=== PATIENT | male | born 1955 | race Caucasian/White ===

== ENCOUNTER 2016-09-20 15:11 | Inpatient (IN) ==
[2016-09-20 16:48] LABS: Basophils % 0.3 %; Eosinophils # 0.1 K/mcL (0.0-0.6); Eosinophils % 0.3 %; Hematocrit 40.8 % (37.5-50.1); Hemoglobin 13.9 g/dL (12.9-16.9); Lymphocytes # 1.4 K/mcL (0.6-4.6); Lymphocytes % 9.2 %; Mean Corpuscular HGB Conc 34.1 g/dL (31.6-35.5); Mean Corpuscular Hemoglobin 31.4 pg (28.0-33.3); Mean Corpuscular Volume 92.3 fL (83.0-100.0); Mean Platelet Volume 9.3 fL (9.4-12.4); Monocytes # 1.6 K/mcL (0.0-1.3); Monocytes % 10.9 %; Neutrophils # 11.4 K/mcL (1.6-8.9); Platelet Count 236 K/mcL (140-400); Red Blood Count 4.42 M/mcL (4.19-5.50); Red Cell Distribution Width 13.6 % (11.5-14.5); Segmented Neutrophils % 78.3 %
[2016-09-20 17:07] LABS: Alanine Aminotransferase 21 Units/L (0-55); Albumin 3.3 g/dL (3.5-5.0); Albumin/Globulin Ratio 0.6 (1.1-2.2); Alkaline Phosphatase 77 Units/L (38-126); Amylase 31 Units/L (25-125); Aspartate Amino Transferase 26 Units/L (5-34); BUN/Creatinine Ratio 17 (6-26); Bilirubin,Total 0.6 mg/dL (0.2-1.2); Blood Urea Nitrogen 28 mg/dL (8-26); Calcium 10.6 mg/dL (8.6-10.8); Carbon Dioxide 25 mEq/L (19-29); Chloride 95 mEq/L (98-109); Globulin 5.1 g/dL (2.4-3.5); Glucose 102 mg/dL (70-99); Lipase < 10 Units/L (8-78); Osmolality,Calculated 276 (280-300); Potassium 4.2 mEq/L (3.5-4.5); Sodium 130 mEq/L (136-145); Total Protein 8.4 g/dL (6.0-8.3); eGFR For African Americans 52 (> 60); eGFR For Non-African Americans 43 (> 60)
[2016-09-20 17:47] LABS: Bilirubin,Urine Small (Negative); Blood,Urine Small (Negative); Clarity,Urine Turbid (Clear); Color,Urine Dark Yellow (Yellow); Glucose,Urine (UA) Normal (Normal); Ketones,Urine Trace mg/dL (Negative); Leukocyte Esterase,Urine Large (Negative); Nitrite,Urine Positive (Negative); PH,Urine 5.5 pH Units (5.0-8.0); Protein,Urine 100 mg/dL (Neg-Trace); Specific Gravity,Urine 1.024 (1.010-1.025); Urobilinogen,Urine Normal (Normal)
[2016-09-20 17:50] LABS: Bacteria,Urine Many per hpf (None-Few); RBC,Urine 15-30 per hpf (0-3); Squamous Epithelial Cell,Urine Many per lpf (None-Few); WBC,Urine 50-100 per hpf (0-3)
[2016-09-20 18:01] LABS: Hyaline Casts,Urine Moderate per lpf (None-Few)
[2016-09-20] MEDS ORDERED: Levofloxacin 750 MG/150 ML 750 MG/150 ML BAG IVPB ONE (18:05)
[2016-09-20] MEDS ORDERED: Piperacillin/Tazobactam 3.375 GM in D5% in Water (Mini-Bag+) 100 ML IVPB ONE (18:11)
--- NOTE | 2016-09-20 18:13 | Emergency Department Note ---
Disposition Clinical Impression: Severe sepsis, BELEM (acute kidney injury), Renal cyst UTI (urinary tract infection) Qualifiers: Urinary tract infection type: acute cystitis Hematuria presence: without hematuria Qualified Code(s): N30.00 - Acute cystitis without hematuria Disposition: Admitted As Inpatient Condition: Fair Referrals: NO,PCP [Primary Care Provider] - Forms: Work/School Release, ED Satisfaction Letter General Adult HPI - General Chief complaint: ED Abdominal Pain Stated complaint: NO BM x4-5 days Time Seen by Provider: 09/20/16 17:48 Source: patient Mode of arrival: private vehicle Limitations: no limitations Nursing Notes Reviewed: Yes Vital Signs Reviewed: Yes - History of Present Illness HPI Narrative: 61-year-old male who reports 4 days of no bowel movement, decreased urine output (with incontinence), chills, fatigue. He says in general he does not not feel well. He has a past medical history of bladder cancer for which she is followed Dr. Cheatham. To his knowledge he is currently cancer free. He is not currently on any radiation or chemotherapy. He notes that he is up all night urinating. He has also had decrease in his by mouth intake. He has been taking Aleve due to a headache and is been taking 800 mg at a time. His only other medical problem is her hypertension and hyperlipidemia for which she takes lisinopril-HCTZ, gemfibrozil. He denies any pain in his belly. His headache has been bifrontal has been going on for approximately 2 days. No photophobia. No neck stiffness Pain Scale: 0 Consistency: constant Improves with: nothing Worsens with: nothing Associated symptoms: Reports: denies other symptoms - Related Data Home Medications Medication Instructions Recorded Confirmed Gemfibrozil [Lopid] 600 mg PO DAILY 07/24/15 05/05/16 Cyanocobalamin (Vitamin B-12) 2,500 mcg PO DAILY 09/20/16 09/20/16 [Vitamin B12] Lisinopril/Hydrochlorothiazide 1 each PO DAILY 09/20/16 09/20/16 [Zestoretic 20-25 mg Tablet] Multivit-Min/FA/Lycopen/Lutein 1 each PO DAILY 09/20/16 09/20/16 [Centrum Silver Tablet] Allergies Allergy/AdvReac Type Severity Reaction Status Date / Time No Known Allergies Allergy Verified 09/20/16 15:50 All systems ED: reviewed and negative except as stated. Constitutional: Reports: chills Eyes: Denies: vision change ENT ED: Denies: throat pain Cardiovascular: Denies: chest pain Respiratory: Denies: cough Gastrointestinal: Reports: constipation. Denies: abdominal pain, nausea, vomiting, diarrhea Genitourinary: Denies: dysuria Musculoskeletal: Denies: back pain Integumentary: Denies: rash Neurological: Reports: headache Past Medical History - Past Medical History Medical history: Reports: cancer, hyperlipidemia, hypertension, other Psychiatric history: Reports: no psych history - Social History Smoking Status: Current every day smoker Smokeless Tobacco Status: No Alcohol use: Reports: none Drug use: Reports: marijuana Physical Exam - General Limitations: no limitations General appearance: alert - Head Head exam: atraumatic - Eye Eye exam: Present: normal appearance, PERRL, EOMI - ENT ENT exam: normal exam - Neck Neck exam: Present: normal inspection - Chest Chest inspection: Present: normal inspection - Respiratory Respiratory exam: Present: normal lung sounds bilaterally. Absent: respiratory distress - Cardiovascular Cardiovascular exam: Present: normal rhythm, tachycardia - Abdominal Exam Abdominal exam: Present: soft, Non-Tender - Extremities Exam Extremities exam: Present: normal inspection - Back Exam Back exam: Present: normal inspection - Neurological Exam Neurological exam: Present: alert, oriented X3 - Psychiatric Psychiatric exam: Present: normal affect, normal mood - Skin Skin exam: Present: warm, dry Course Course Narrative: History shows a tachycardia of 114. In addition he has been complaining of fever and chills and his leukocytosis. I am concerned about sepsis and will initiate the sepsis protocol. His urinalysis demonstrates urinary tract infection so this may be due to a urosepsis. While I am doing a CT scan of his abdomen I will start the fluid resuscitation and the antibiotic's. His acute kidney injury appears to be new. The other reason for the CT scan is rule out obstructive pathology. CT negative for acute pathology. EKG is NSR. After starting the antibiotics his blood pressure fell to the 70s systolic. It resolved after 2 L normal saline bolus. He still has 2 more liters until he completes his 30 mL per kilogram bolus. we have 2 IVs and he is currently asymptomatic. Batsheva accepts Vital Signs Temperature 99 F 09/20/16 15:50 Pulse Rate 114 09/20/16 15:50 Respiratory Rate 20 09/20/16 15:50 Blood Pressure 106/70 09/20/16 15:50 O2 Sat by Pulse Oximetry 98 09/20/16 15:50 Temperature 99 F 09/20/16 15:50 Pulse Rate 89 09/20/16 19:55 Respiratory Rate 18 09/20/16 19:55 Blood Pressure 101/66 09/20/16 19:55 O2 Sat by Pulse Oximetry 95 09/20/16 19:55 Oxygen Delivery Oxygen Delivery Room Air Medical Decision Making - Medical Records Medical records reviewed: Yes I reviewed the patient's medical records. - Lab Data Lab results reviewed: Yes I reviewed the patient's lab results. Result diagrams: 09/20/16 16:37 09/20/16 16:37 Lab Results 09/20/16 09/20/16 09/20/16 Range/Units 16:37 16:37 17:34 WBC 14.6 H (4.3-11.1) K/mcL RBC 4.42 (4.19-5.50) M/mcL Hgb 13.9 (12.9-16.9) g/dL Hct 40.8 (37.5-50.1) % MCV 92.3 (83.0-100.0) fL MCH 31.4 (28.0-33.3) pg MCHC 34.1 (31.6-35.5) g/dL RDW 13.6 (11.5-14.5) % Plt Count 236 (140-400) K/mcL MPV 9.3 L (9.4-12.4) fL Immature Gran % 1.0 (0-4) % Seg Neutrophils % 78.3 % Lymphocytes % 9.2 % Monocytes % 10.9 % Eosinophils % 0.3 % Basophils % 0.3 % Neutrophils # 11.4 H (1.6-8.9) K/mcL Lymphocytes # 1.4 (0.6-4.6) K/mcL Monocytes # 1.6 H (0.0-1.3) K/mcL Eosinophils # 0.1 (0.0-0.6) K/mcL Basophils # 0.0 (0.0-0.2) K/mcL Sodium 130 L (136-145) mEq/L Potassium 4.2 (3.5-4.5) mEq/L Chloride 95 L (98-109) mEq/L Carbon Dioxide 25 (19-29) mEq/L BUN 28 H (8-26) mg/dL Creatinine 1.64 H (0.72-1.25) mg/dL Est GFR ( Amer) 52 L (> 60) Est GFR (Non-Af Amer) 43 L (> 60) BUN/Creatinine Ratio 17 (6-26) Glucose 102 H (70-99) mg/dL Calculated Osmolality 276 L (280-300) Lactic Acid (0.5-2.2) mmol/L Calcium 10.6 (8.6-10.8) mg/dL Phosphorus (2.3-4.7) mg/dL Magnesium (1.6-2.6) mg/dL Total Bilirubin 0.6 (0.2-1.2) mg/dL AST 26 (5-34) Units/L ALT 21 (0-55) Units/L Alkaline Phosphatase 77 (38-126) Units/L Troponin I (0-0.03) ng/mL Serum Total Protein 8.4 H (6.0-8.3) g/dL Albumin 3.3 L (3.5-5.0) g/dL Globulin 5.1 H (2.4-3.5) g/dL Albumin/Globulin Ratio 0.6 L (1.1-2.2) Amylase 31 (25-125) Units/L Lipase < 10 (8-78) Units/L TSH (0.350-4.840) mcIU/mL Urine Color Dark Yellow (Yellow) Urine Clarity Turbid A (Clear) Urine pH 5.5 (5.0-8.0) pH Units Ur Specific [place] 1.024 (1.010-1.025) Urine Protein 100 H (Neg-Trace) mg/dL Urine Glucose (UA) Normal (Normal) mg/dL Urine Ketones Trace H (Negative) mg/dL Urine Blood Small H (Negative) Urine Nitrite Positive A (Negative) Urine Bilirubin Small H (Negative) Urine Urobilinogen Normal (Normal) mg/dL Ur Leukocyte Esterase Large H (Negative) Urine Microscopic RBC 15-30 H (0-3) per hpf Urine Microscopic WBC 50-100 H (0-3) per hpf Ur Squamous Epith Cells Many H (None-Few) per lpf Urine Bacteria Many H (None-Few) per hpf Hyaline Casts Moderate H (None-Few) per lpf Ur Culture Indicated? YES A (NO) 09/20/16 09/20/16 09/20/16 Range/Units 18:50 18:50 18:50 WBC (4.3-11.1) K/mcL RBC (4.19-5.50) M/mcL Hgb (12.9-16.9) g/dL Hct (37.5-50.1) % MCV (83.0-100.0) fL MCH (28.0-33.3) pg MCHC (31.6-35.5) g/dL RDW (11.5-14.5) % Plt Count (140-400) K/mcL MPV (9.4-12.4) fL Immature Gran % (0-4) % Seg Neutrophils % % Lymphocytes % % Monocytes % % Eosinophils % % Basophils % % Neutrophils # (1.6-8.9) K/mcL Lymphocytes # (0.6-4.6) K/mcL Monocytes # (0.0-1.3) K/mcL Eosinophils # (0.0-0.6) K/mcL Basophils # (0.0-0.2) K/mcL Sodium (136-145) mEq/L Potassium (3.5-4.5) mEq/L Chloride (98-109) mEq/L Carbon Dioxide (19-29) mEq/L BUN (8-26) mg/dL Creatinine (0.72-1.25) mg/dL Est GFR ( Amer) (> 60) Est GFR (Non-Af Amer) (> 60) BUN/Creatinine Ratio (6-26) Glucose (70-99) mg/dL Calculated Osmolality (280-300) Lactic Acid 1.3 (0.5-2.2) mmol/L Calcium (8.6-10.8) mg/dL Phosphorus 2.7 (2.3-4.7) mg/dL Magnesium 1.6 (1.6-2.6) mg/dL Total Bilirubin (0.2-1.2) mg/dL AST (5-34) Units/L ALT (0-55) Units/L Alkaline Phosphatase (38-126) Units/L Troponin I 0.01 (0-0.03) ng/mL Serum Total Protein (6.0-8.3) g/dL Albumin (3.5-5.0) g/dL Globulin (2.4-3.5) g/dL Albumin/Globulin Ratio (1.1-2.2) Amylase (25-125) Units/L Lipase (8-78) Units/L TSH 1.597 (0.350-4.840) mcIU/mL Urine Color (Yellow) Urine Clarity (Clear) Urine pH (5.0-8.0) pH Units Ur Specific [place] (1.010-1.025) Urine Protein (Neg-Trace) mg/dL Urine Glucose (UA) (Normal) mg/dL Urine Ketones (Negative) mg/dL Urine Blood (Negative) Urine Nitrite (Negative) Urine Bilirubin (Negative) Urine Urobilinogen (Normal) mg/dL Ur Leukocyte Esterase (Negative) Urine Microscopic RBC (0-3) per hpf Urine Microscopic WBC (0-3) per hpf Ur Squamous Epith Cells (None-Few) per lpf Urine Bacteria (None-Few) per hpf Hyaline Casts (None-Few) per lpf Ur Culture Indicated? (NO) - Radiology Data Radiology results reviewed: Yes I reviewed the patient's radiology results. - EKG Data EKG #1 EKG attestation: Yes I reviewed and interpreted this EKG. EKG shows normal: sinus rhythm Rate: normal Rhythm: NSR [place]/QRS: left axis deviation Interpretation: no acute changes Critical Care Time Total Critical Care Time: 35 Attestation: I spent greater than 35 minutes resuscitating this acutely ill male suffering from septic shock. He received ongoing fluid resuscitation and remains in critical condition with hypertension for life-threatening deterioration. Critical care time was excluding billable procedures Attestation Statement - Attestation Attestation: I examined this patient and my medical decision-making was reviewed with the NURSE ADMINISTRATOR/PA/Advanced Practice Nurse/Resident Physician. I agree with the documented findings, disposition and treatment plan as described except to the extent set forth below. Male patient who presents with complaints of urinary incontinence as well as some lethargy and night sweats. Ultimately found to have a nitrite positive urinary tract infection. He did have an otitis media mediated hypotension following administration of antibiotics and ultimately received 3 mL per kilo fluid bolus. He received antibiotics which are asked later for severe sepsis. Lactate was checked and was normal. Imaging shows no acute findings. I do think he has a urinary tract infection with possible urosepsis. He has had some episodes of hypotension but has been fluid responsive. We will continue IV fluid resuscitation. We will continue to monitor the need for vasopressors.
[2016-09-20] MEDS: 0.9 % Sodium Chloride 1,000 ML IVC SCH ×2 (18:54→19:53)
[2016-09-20 19:14] LABS: Magnesium 1.6 mg/dL (1.6-2.6); Phosphorous 2.7 mg/dL (2.3-4.7)
[2016-09-20 20:24] LABS: Thyroid Stimulating Hormone 1.597 mcIU/mL (0.350-4.840)
--- NOTE | 2016-09-20 21:17 | Internal Med History&Physical ---
Date of Encounter: 09/21/16 Time of Encounter: 21:16 Assessment and Plan (1) Severe sepsis Current visit: Yes Status: Acute Patient meeting sepsis criteria secondary to urinary tract infection, WBCs of 14 , tachycardia, hypotension with a systolic blood pressure low of 70. - Patient receiving IV fluids current blood pressure is low end of normotensive Plan: - Sepsis protocol - Treat urinary tract infection - Lactic acid - Blood cultures - Urine culture - Patient receiving normal saline at 30 mL's per hour (2) UTI (urinary tract infection) Current visit: Yes Status: Acute Patient presents with urinary tract infection, urinalysis positive for nitrates. Patient describes urine as dark. Continuing factors: Poor stream, diminished urinary output, history of bladder cancer, previous TURP 3 years ago. Plan: - IV Zosyn - Urinalysis collected, urine culture pending Qualifiers: Urinary tract infection type: acute cystitis Hematuria presence: without hematuria Qualified Code(s): N30.00 - Acute cystitis without hematuria (3) BELEM (acute kidney injury) Current visit: Yes Status: Acute Kidney injury in the setting of hypotension and severe sepsis with urinary tract infection. Creatinine of 1.64 and GFR of 43. - Blood pressures stable after rehydration per sepsis protocol - We will continue IV fluids at 125 mL's per hour - Avoid nephrotoxic medications and renally dose antibiotics - Monitor renal function with a.m. labs and urinary output. - Patient should follow-up with his urologist Dr. Cheatham post discharge. (4) Renal cyst Current visit: Yes Status: Acute Chronic, seen on CT of the abdomen and pelvis. (5) Tobacco abuse Current visit: Yes Status: Acute Patient is a pack-a-day smoker. Smoking cessation discussed - Nicotine patch when necessary (6) DVT prophylaxis Current visit: Yes Status: Acute Lovenox 40 mg subcutaneous daily. Internal Medicine - H&P: HPI Chief complaint: abd pain Admitted From: Emergency Dept Plans for Post Hospital Care: Home History of present illness: Mr. Beck is a 61 year old male past medical history of bladder cancer, TURP 3 years ago, hypertension presents to the emergency department with abdominal pain and diminished urinary output. Mr. Beck says that over the past 5 days he has had dark urine with diminished urinary output. He also complains of chills and sweating but no fevers over the past 3-4 days. He says that he struggles with incontinence after he had bladder cancer surgery and a TURP 3 years ago. He said ever since the TURP he is up 3-4 times per night to urinate and has a diminished urinary output. He has previous history of urinary tract infections similar to his current symptoms. He denies any increase in frequency of urination, any change in the difficulty of his stream. He said that when he noticed he had a small amount of urine output and it was dark in color he thought it was because he was drinking too much Pepsi and switch to drinking water. His symptoms did not improve and he had did not have any improvement in his urinary output. He denies any dizziness but has had headaches that have been throbbing and pounding diffusely across his head over the last 24 hours. He started having abdominal pain today but added to his symptoms. Past Med Surg Social Fam HX - Past Medical History Medical history: cancer, hyperlipidemia, hypertension, other Psychiatric history: no psych history - Social History Smoking Status: Current every day smoker Smokeless Tobacco Status: No Alcohol use: none Drug use: marijuana - Family History Father Living Status: Hx Family Cancer: Yes (Prostate) Internal Medicine - H&P: Meds Gemfibrozil [Lopid] 600 mg PO BID 07/24/15 [History] Cyanocobalamin (Vitamin B-12) [Vitamin B12] 2,500 mcg PO DAILY 09/20/16 [History ] Lisinopril/Hydrochlorothiazide [Zestoretic 20-25 mg Tablet] 1 each PO DAILY 01/27 [History] Multivit-Min/FA/Lycopen/Lutein [Centrum Silver Tablet] 1 each PO DAILY 09/20/16 [History] Allergies No Known Allergies Allergy (Verified 09/20/16 15:50) All Systems PM: A 10-system review of systems was performed and is negative for pertinent findings except as documented above in the HPI. - Constitutional Constitutional: chills, malaise, night sweats, no fever(s) - EENT Eyes: no change in vision, no discharge, no pain, no photophobia Ears: no ear discharge, no ear pain, no tinnitus Nose, mouth and throat: no dysphagia, no nasal discharge, no neck pain, no sore throat - Cardiovascular Cardiovascular ROS IM: no chest pain, no diaphoresis, no dyspnea, no lightheadedness, no palpitations, no syncope - Respiratory Respiratory: no cough, no dyspnea, no wheezing, no excessive phlegm production - Gastrointestinal Gastrointestinal: abdominal pain, no diarrhea, no hematemesis, no hematochezia, no melena, no nausea, no vomiting - Genitourinary Genitourinary ROS male: difficulty urinating, dysuria, post void dribbling - Musculoskeletal Musculoskeletal ROS IM: no numbness, no tingling - Integumentary Integumentary IM: no rash, no unusual bruising - Neurological Neurological ROS: no confusion, no convulsions, no focal weakness, no numbness, no tingling, no tremor(s) - Hematologic/Lymphatic Hematologic/Lymphatic: no easy bruising - Constitutional Vitals: Temp Pulse Resp BP Pulse Ox 99 F 89 18 101/66 95 09/20/16 15:50 09/20/16 19:55 09/20/16 19:55 09/20/16 19:55 09/20/16 19:55 Exam: General: Patient alert, awake, oriented 3, interactive, in no acute distress HEENT: Normocephalic, atraumatic, pupils equal reactive to light, nasal cavity patent and open septum median position, oral mucosa moist, uvula midline, neck supple trachea midline no palpable lymphadenopathy, no thyromegaly. Chest: Symmetric bilateral correlating with respiratory effort, effort nonlabored. Cardiac: Regular rate and rhythm, positive S1 and S2. no bruits appreciated bilateral carotids, Radial pulses 2+ bilateral, posterior tibial and dorsal pedal pulses 2+ bilateral. Respiratory: Clear to auscultation all lung malik Abdomen: Soft, obese, nontender, positive bowel sounds, no palpable masses appreciated on examination Extremities: Symmetric bilateral, bilateral lower extremities without erythema or edema patient moving all 4 extremities spontaneously. Neurologic: No focal deficits appreciated on examination. Face symmetric, muscle strength symmetric bilateral upper and lower extremities. Internal Med - H&P Results - Labs CBC & Chem 7: 09/20/16 16:37 09/20/16 16:37
[2016-09-20] MEDS ORDERED: Naloxone 0.4 MG/ML INJ IVP PRN (21:49)
[2016-09-20] MEDS ORDERED: Ondansetron ODT 4 MG TAB.RAPDIS SL PRN (21:49)
[2016-09-20] MEDS ORDERED: Acetaminophen 325 MG TABLET PO PRN (21:49)
[2016-09-20] MEDS ORDERED: 0.9 % Sodium Chloride w KCl 20 MEQ/1,000 ML MLS IVC SCH (22:00)
[2016-09-20 22:46] LABS: INR 1.4; Prothrombin Time 15.6 Seconds (9.4-12.1)
[2016-09-20 22:49] LABS: Activated Partial Thrombo Time 29.3 Seconds (26.0-36.0)
[2016-09-20 22:53] LABS: Albumin 3.2 g/dL (3.5-5.0); Albumin/Globulin Ratio 0.6 (1.1-2.2); Bilirubin,Direct 0.3 mg/dL (0.0-0.5); Bilirubin,Indirect 0.3 mg/dL (0.0-1.2); Bilirubin,Total 0.6 mg/dL (0.2-1.2); Total Protein 8.2 g/dL (6.0-8.3)
[2016-09-21] MEDS ORDERED: Piperacillin/Tazobactam 3.375 GM in D5% in Water (Mini-Bag+) 100 ML IVPB SCH
[2016-09-21 02:20] LABS: Basophils % 0.2 %; Eosinophils % 0.2 %; Immature Granulocytes % 2.4 % (0-4); Lymphocytes # 0.9 K/mcL (0.6-4.6); Lymphocytes % 6.9 %; Mean Corpuscular HGB Conc 34.8 g/dL (31.6-35.5); Mean Corpuscular Volume 88.9 fL (83.0-100.0); Monocytes # 1.6 K/mcL (0.0-1.3); Monocytes % 12.9 %; Neutrophils # 9.6 K/mcL (1.6-8.9); Platelet Count 194 K/mcL (140-400); Red Blood Count 3.71 M/mcL (4.19-5.50); Red Cell Distribution Width 13.4 % (11.5-14.5); Segmented Neutrophils % 77.4 %
[2016-09-21 02:23] LABS: Hemoglobin 11.5 g/dL (12.9-16.9)
[2016-09-21 02:35] LABS: Albumin 2.6 g/dL (3.5-5.0); Albumin/Globulin Ratio 0.6 (1.1-2.2); Bilirubin,Total 0.5 mg/dL (0.2-1.2); Globulin 4.2 g/dL (2.4-3.5); Potassium 3.5 mEq/L (3.5-4.5); Total Protein 6.8 g/dL (6.0-8.3)
[2016-09-21 02:37] LABS: Calcium 8.8 mg/dL (8.6-10.8)
[2016-09-21] MEDS: *HR* Enoxaparin 40 MG/0.4 ML SYRINGE SQ SCH (05:20)
[2016-09-21] MEDS: 0.9 % Sodium Chloride 1,000 ML IVC SCH ×2 (08:37→13:09)
[2016-09-21] MEDS ORDERED: Pantoprazole 40 MG VIAL IVP SCH (09:00)
[2016-09-21] MEDS ORDERED: MOM Conc 10 ML UD.LIQ PO ONE (09:10)
[2016-09-21 09:27] LABS: Acinetobacter baumannii by PCR Not Detected (Not Detect); Candida albicans by PCR Not Detected (Not Detect); Candida glabrata by PCR Not Detected (Not Detect); Candida krusei by PCR Not Detected (Not Detect); Candida parapsilosis by PCR Not Detected (Not Detect); Candida tropicalis by PCR Not Detected (Not Detect); Enterococcus by PCR Not Detected (Not Detect); Klebsiella oxytoca by PCR Not Detected (Not Detect); Klebsiella pneumoniae by PCR Not Detected (Not Detect); Pseudomonas aeruginosa by PCR Not Detected (Not Detect); Serratia marcescens by PCR Not Detected (Not Detect); Staphylococcus aureus by PCR Not Detected (Not Detect); Streptococcus agalactiae(B)PCR Not Detected (Not Detect); Streptococcus by PCR Not Detected (Not Detect); Streptococcus pneumoniae PCR Not Detected (Not Detect); Streptococcus pyogenes (A) PCR Not Detected (Not Detect); blaKPC Carbapenem-Resist Gene Not Detected (Not Detect)
[2016-09-21 09:28] LABS: Escherichia coli by PCR ***DETECTED*** (Not Detect)
--- NOTE | 2016-09-21 11:37 | Electrocardiograph Report ---
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
--- NOTE | 2016-09-21 14:54 | Internal Med Progress Note ---
Date of Encounter: 09/21/16 Time of Encounter: 02:40 - Assessment and plan (1) Sepsis Current Visit: Yes Status: Acute Assessment and plan: Sepsis on presentation with a white count greater than 12,000, tachycardia with heart rate greater than 90 and fevers overnight of over 101 degrees Fahrenheit. Sepsis due to urinary tract infection. Suspect Escherichia coli as the causative agent. Patient is on ceftriaxone. Continue the same. Blood cultures positive for gram-negative rods on day 1. We will obtain repeat blood cultures to document clearance of bacteremia. High risk due to risk of worsening sepsis and septic shock. Intravenous fluids. Qualifiers: Sepsis type: Escherichia coli Qualified Code(s): A41.51 - Sepsis due to Escherichia coli [E. coli] (2) UTI (urinary tract infection) Current Visit: Yes Status: Acute Assessment and plan: Suspected due to Escherichia coli. Continue ceftriaxone Qualifiers: Urinary tract infection type: acute cystitis Hematuria presence: without hematuria Qualified Code(s): N30.00 - Acute cystitis without hematuria (3) BELEM (acute kidney injury) Current Visit: Yes Status: Acute Assessment and plan: Likely due to dehydration and sepsis. Continue intravenous fluids. Obtain renal ultrasound to evaluate for obstruction. (4) HTN (hypertension) Current Visit: Yes Status: Chronic Assessment and plan: Borderline low blood pressure and patient has sepsis. Hold blood pressure medications. Qualifiers: Hypertension type: essential hypertension Qualified Code(s): I10 - Essential (primary) hypertension - Subjective Interval history: Patient states that he is feeling well. He denies any burning or pain during urination. He does report chronic stress incontinence. He reports a history of bladder cancer and states that he sees a urologist regularly. He denies any nausea, vomiting or any back pain. He denies any fever or chills, chest pain, shortness of breath, cough or wheezing. - Constitutional Vitals: Temp Pulse Resp BP Pulse Ox 98 F 78 16 121/76 97 09/21/16 11:27 09/21/16 11:27 09/21/16 11:27 09/21/16 11:27 09/21/16 11:27 Exam: Gen.: Lying in bed. No acute distress. Chest: Clear to auscultation bilaterally. No adventitious sounds present. CVS: First and second heart sounds present. No murmurs, rubs or gallops. Abdomen: Soft, nontender, obese. Bowel sounds present. No hepatosplenomegaly. Skin: No decubitus ulcers appreciated. Internal Medicine: Result - Labs CBC & Chem 7: 09/21/16 02:11 09/21/16 02:11 Labs: Short CBC 09/21/16 Range/Units 02:11 WBC 12.5 H (4.3-11.1) K/mcL Hgb 11.5 L D (12.9-16.9) g/dL Hct 33.0 L (37.5-50.1) % Plt Count 194 (140-400) K/mcL Neutrophils # 9.6 H (1.6-8.9) K/mcL BMP 09/21/16 02:11 Sodium 128 L Potassium 3.5 Chloride 99 Carbon Dioxide 20 BUN 28 H Creatinine 1.47 H Glucose 116 H Calcium 8.8 D Liver Function 09/21/16 Range/Units 02:11 Total Bilirubin 0.5 (0.2-1.2) mg/dL AST 25 (5-34) Units/L ALT 16 (0-55) Units/L Alkaline Phosphatase 61 (38-126) Units/L Albumin 2.6 L (3.5-5.0) g/dL - ABG Interpretation ABG results: PT/INR, D-dimer PT 15.6 Seconds (9.4-12.1) H 09/20/16 18:50 Consult Discharge Plan - Plan Referrals: Nisha Brewer MD [Non-Partnered Physician] - 09/28/16 11:00 am
[2016-09-22] MEDS: *HR* Enoxaparin 40 MG/0.4 ML SYRINGE SQ SCH (06:26)
[2016-09-22 08:44] LABS: Basophils % 0.4 %; Eosinophils # 0.2 K/mcL (0.0-0.6); Eosinophils % 1.9 %; Hematocrit 37.5 % (37.5-50.1); Immature Granulocytes % 3.6 % (0-4); Lymphocytes % 12.3 %; Mean Corpuscular HGB Conc 34.9 g/dL (31.6-35.5); Mean Corpuscular Hemoglobin 31.6 pg (28.0-33.3); Mean Corpuscular Volume 90.4 fL (83.0-100.0); Mean Platelet Volume 9.6 fL (9.4-12.4); Monocytes # 0.9 K/mcL (0.0-1.3); Monocytes % 10.9 %; Neutrophils # 5.7 K/mcL (1.6-8.9); Platelet Count 227 K/mcL (140-400); Red Blood Count 4.15 M/mcL (4.19-5.50); Red Cell Distribution Width 13.8 % (11.5-14.5); Segmented Neutrophils % 70.9 %
[2016-09-22 08:46] LABS: BUN/Creatinine Ratio 19 (6-26); Blood Urea Nitrogen 20 mg/dL (8-26); Calcium 9.2 mg/dL (8.6-10.8); Carbon Dioxide 21 mEq/L (19-29); Glucose 92 mg/dL (70-99); eGFR For African Americans > 60 (> 60); eGFR For Non-African Americans > 60 (> 60)
[2016-09-22 08:49] LABS: Hemoglobin 13.1 g/dL (12.9-16.9)
[2016-09-22 08:53] LABS: Chloride 101 mEq/L (98-109); Osmolality,Calculated 276 (280-300); Potassium 3.8 mEq/L (3.5-4.5); Sodium 132 mEq/L (136-145)
[2016-09-22] MEDS: *HR* Heparin 5,000 UNIT/ML VIAL SQ SCH ×3 (10:18→15:26)
--- NOTE | 2016-09-22 16:23 | Internal Med Progress Note ---
Date of Encounter: 09/22/16 Time of Encounter: 15:45 - Assessment and plan (1) Sepsis Current Visit: Yes Status: Resolved Assessment and plan: Sepsis on presentation with a white count greater than 12,000, tachycardia with heart rate greater than 90 and fevers overnight of over 101 degrees Fahrenheit. Sepsis due to urinary tract infection. Patient is on ceftriaxone. We will switch to by mouth ciprofloxacin. The patient continues to do well on by mouth Cipro Floxin, likely discharge over the next 1-2 days. Blood cultures positive for gram-negative rods on day 1. Repeat blood cultures have been negative so far. Moderate risk due to risk of septic shock and worsening sepsis. Qualifiers: Sepsis type: Escherichia coli Qualified Code(s): A41.51 - Sepsis due to Escherichia coli [E. coli] (2) UTI (urinary tract infection) Current Visit: Yes Status: Acute Assessment and plan: Due to Escherichia coli. Changed to Cipro Floxin by mouth. Qualifiers: Urinary tract infection type: acute cystitis Hematuria presence: without hematuria Qualified Code(s): N30.00 - Acute cystitis without hematuria (3) BELEM (acute kidney injury) Current Visit: Yes Status: Resolved Assessment and plan: Resolved. Continue intravenous fluids as the patient will receive IV dye for CT scan. (4) HTN (hypertension) Current Visit: Yes Status: Chronic Assessment and plan: Blood pressure going into the elevated range. Will resume home medication. Qualifiers: Hypertension type: essential hypertension Qualified Code(s): I10 - Essential (primary) hypertension (5) Renal cyst Current Visit: Yes Status: Chronic Assessment and plan: Will obtain CT scan of the abdomen/pelvis with intravenous contrast to further evaluate the same. - Subjective Interval history: Patient states that he is feeling well. He is eager to be discharged. No dysuria or burning urination. - Constitutional Vitals: Temp Pulse Resp BP Pulse Ox 96.3 F L 79 16 139/100 98 09/22/16 15:42 09/22/16 15:42 09/22/16 15:42 09/22/16 15:42 09/22/16 15:42 Exam: Gen.: Lying in bed. No acute distress. Chest: Clear to auscultation bilaterally. No adventitious sounds present. CVS: First and second heart sounds present. No murmurs, rubs or gallops. Abdomen: Soft, nontender, obese. Bowel sounds present. No hepatosplenomegaly. Internal Medicine: Result - Labs CBC & Chem 7: 09/22/16 08:07 09/22/16 08:07 Labs: Short CBC 09/22/16 Range/Units 08:07 WBC 8.0 (4.3-11.1) K/mcL Hgb 13.1 D (12.9-16.9) g/dL Hct 37.5 (37.5-50.1) % Plt Count 227 (140-400) K/mcL Neutrophils # 5.7 (1.6-8.9) K/mcL BMP 09/22/16 08:07 Sodium 132 L Potassium 3.8 Chloride 101 Carbon Dioxide 21 BUN 20 Creatinine 1.08 Glucose 92 Calcium 9.2 - ABG Interpretation ABG results: PT/INR, D-dimer PT 15.6 Seconds (9.4-12.1) H 09/20/16 18:50 - Impressions Impressions Retroperitoneum Ultrasound 09/21/16 18:30 IMPRESSION: 1.8 x 0.9 x 1.5 cm right renal cyst. 2.7 x 2.7 x 2.2 cm hypoechoic left renal lesion. Recommend further evaluation with dedicated CT or MRI of the kidneys with contrast for further evaluation. If patient cannot receive contrast due to renal function, recommend further evaluation with ultrasound within 6 months to ensure stability Fatty liver. D/ / Mi Shannon MD / Mi Shannon MD Interpreting Provider: Mi Shannon MD Consult Discharge Plan - Plan Referrals: Nisha Brewer MD [Non-Partnered Physician] - 09/28/16 11:00 am
[2016-09-22] MEDS: amLODIPine 5 MG TABLET PO SCH (17:16)
[2016-09-22] MEDS: 0.9 % Sodium Chloride 1,000 ML IVC SCH (20:43)
[2016-09-23 04:22] LABS: Basophils % 0.4 %; Eosinophils # 0.2 K/mcL (0.0-0.6); Eosinophils % 3.1 %; Hematocrit 34.8 % (37.5-50.1); Hemoglobin 11.8 g/dL (12.9-16.9); Immature Granulocytes % 1.6 % (0-4); Lymphocytes % 15.1 %; Mean Corpuscular HGB Conc 33.9 g/dL (31.6-35.5); Mean Corpuscular Hemoglobin 31.1 pg (28.0-33.3); Mean Corpuscular Volume 91.6 fL (83.0-100.0); Mean Platelet Volume 9.4 fL (9.4-12.4); Monocytes # 0.7 K/mcL (0.0-1.3); Monocytes % 9.5 %; Neutrophils # 4.8 K/mcL (1.6-8.9); Platelet Count 235 K/mcL (140-400); Red Cell Distribution Width 13.9 % (11.5-14.5); Segmented Neutrophils % 70.3 %
[2016-09-23 04:37] LABS: BUN/Creatinine Ratio 18 (6-26); Blood Urea Nitrogen 18 mg/dL (8-26); Carbon Dioxide 23 mEq/L (19-29); Chloride 105 mEq/L (98-109); Glucose 102 mg/dL (70-99); Osmolality,Calculated 280 (280-300); Potassium 4.1 mEq/L (3.5-4.5); Sodium 134 mEq/L (136-145); eGFR For African Americans > 60 (> 60); eGFR For Non-African Americans > 60 (> 60)
[2016-09-23 05:10] LABS: Platelet Estimate Normal (Normal)
[2016-09-23 05:11] LABS: Reactive Lymphocytes Present (Not Present)
[2016-09-23] MEDS: amLODIPine 5 MG TABLET PO SCH (07:43)
--- NOTE | 2016-09-23 11:56 | Discharge Summary ---
Date of Encounter: 09/23/16 Time of Encounter: 09:15 - Discharge Diagnosis (1) Sepsis Priority: Primary Status: Resolved Qualifiers: Sepsis type: Escherichia coli Qualified Code(s): A41.51 - Sepsis due to Escherichia coli [E. coli] (2) UTI (urinary tract infection) Priority: Secondary Status: Acute Qualifiers: Urinary tract infection type: acute cystitis Hematuria presence: without hematuria Qualified Code(s): N30.00 - Acute cystitis without hematuria (3) BELEM (acute kidney injury) Priority: Secondary Status: Resolved (4) HTN (hypertension) Priority: Secondary Status: Chronic Qualifiers: Hypertension type: essential hypertension Qualified Code(s): I10 - Essential (primary) hypertension (5) Renal cyst Priority: Secondary Status: Chronic (6) Renal cell carcinoma Priority: Secondary Status: Chronic Qualifiers: Laterality: left Qualified Code(s): C64.2 - Malignant neoplasm of left kidney, except renal pelvis - Discharge Medications Prescriptions: Ciprofloxacin [Cipro] 500 mg PO BID #22 tab Home Medications: Gemfibrozil [Lopid] 600 mg PO BID 07/24/15 [History] Cyanocobalamin (Vitamin B-12) [Vitamin B12] 2,500 mcg PO DAILY 09/20/16 [History ] Lisinopril/Hydrochlorothiazide [Zestoretic 20-25 mg Tablet] 1 each PO DAILY 01/27 [History] Multivit-Min/FA/Lycopen/Lutein [Centrum Silver Tablet] 1 each PO DAILY 09/20/16 [History] Ciprofloxacin [Cipro] 500 mg PO BID #22 tab 09/23/16 [Rx] Allergies/Adverse Reactions: Allergies No Known Allergies Allergy (Verified 09/20/16 15:50) Procedures/tests Complete & Pending: Procedures Performed prior 72 hours Category Date Time Status CT abd pelvis w iv no oral [CT] Routine Cat Scan 09/22/16 18:30 Draft US retroperitoneal comp [US] Routine Exams 09/21/16 18:30 Completed - Notes to Outpatient Provider 1. Left renal cell carcinoma found during admission for E.coli UTI and sepsis. Needs follow up with Urology in 3-4 weeks 2. Renal cycts need monitoring Date of admission: 09/20/16 21:29 Primary care physician: PCP NO Discharging clinician: Laurent Tobias Anticipated date of discharge: 09/23/16 - Patient Status Disposition: Home, Self-Care Condition: Good Functional capacity at discharge: independent ambulation Overall status at discharge: patient is progressing back to baseline - Discharge Instructions Follow Up With: Nisha Brewer MD [Non-Partnered Physician] - 09/28/16 11:00 am Jona Gaviria MD [Partnered Physician] - (3-4 weeks) - Diet and Activity Activity: increase activity as tolerated Diet: low fat, low cholesterol, low salt diet Hospital course: Mr. Beck is a 61 year old male with a history of bladder cancer and urinary incontinence, hypertension who presented with abdominal pain and diminished urinary output. In the emergency room, he was found to have urinary tract infection and a blood pressure with systolic in the 80s. He was diagnosed with sepsis and UTI and admitted to the hospital. He was given antibiotics and blood cultures were obtained. During stay in the hospital, his urinary cultures and blood cultures are positive for Escherichia coli. As the patient continued to improve and his hypotension resolved with fluid therapy, his anti- medics were changed to by mouth route. He is being discharged home to finish a two-week course of antibiotics. The patient was also found to have acute kidney injury at the time of presentation. This resolved with occluded mid station. An ultrasound of the kidneys was obtained to evaluate the acute kidney injury. Ultrasound revealed bilateral renal cysts. CT scan or MRI with contrast was recommended to further evaluate the cysts. After his acute kidney injury resolved, CT scan of the abdomen/pelvis with contrast was performed. This revealed an exophytic mass in the left kidney consistent with renal cell carcinoma. As the patient is still getting antibiotics for his Escherichia coli septicemia , a urology consult was not requested. After discussing the case over the phone with the urologist, it was recommended that the patient follow-up with urology in 3-4 weeks after discharge. As the patient is doing well and is ambulating around the rose without any dizziness or symptoms, he has been deemed stable to be discharged home today. - Time Spent with Patient Total time spent providing and/or coordinating discharge services: Greater than 30 minutes (40) - Constitutional Vitals: Temp Pulse Resp BP Pulse Ox 97.7 F 67 16 125/82 99 09/23/16 07:15 09/23/16 07:15 09/23/16 07:15 09/23/16 07:15 09/23/16 07:15 Exam: Gen.: Sitting in a chair. No acute distress. Chest: Clear to auscultation bilaterally. No adventitious sounds present. CVS: First and second heart sounds present. No murmurs, rubs or gallops. Abdomen: Soft, nontender, obese. Bowel sounds present. No hepatosplenomegaly.
[2016-09-23 11:57] VITALS: BP 137/96
== END 2016-09-23 13:55 | disposition home or self-care (01) | DRG 720 ==
LOC: 2NENU 15:11 → EMEROO 15:11 → 2NENU 20:45
PROVIDERS: ADMIT Pediatrics; ATTEND Internal Medicine Sleep Medicine

== ENCOUNTER 2016-12-23 06:35 | Inpatient (IN) ==
[2016-12-23] MEDS ORDERED: *HR* Midazolam HCl 2 MG/2 ML VIAL ONE (06:45)
[2016-12-23] MEDS ORDERED: *HR* FentaNYL (PF) 100 MCG/2 ML VIAL ONE ×4 (06:45→09:14)
[2016-12-23] MEDS ORDERED: *HR* Propofol 200 MG/20 ML VIAL IVP ONE ×2 (06:45)
[2016-12-23] MEDS ORDERED: *HR* Succinylcholine 200 MG/10 ML VIAL IVP ONE (06:49)
[2016-12-23] MEDS ORDERED: *HR* Rocuronium Bromide 50 MG/5 ML VIAL ONE ×2 (06:49→09:24)
[2016-12-23] MEDS ORDERED: Lidocaine -MPF 2% 2 ML VIAL ONE (06:56)
[2016-12-23] MEDS ORDERED: Water for inj. (sterile) 10 ML IV ONE (06:57)
[2016-12-23] MEDS ORDERED: Lidocaine -MPF 4% 5 ML AMPUL ONE (06:57)
--- NOTE | 2016-12-23 06:57 | Anesthesia Evaluation PreOp ---
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 Other Medical History: Denies Any Significant HX, Other (obesity) Anesthesia History: No Prior Anesthetic Complications, Past Anesthesia (TURB) Alcohol Use: none Drug use: marijuana Medications and Allergies Gemfibrozil [Lopid] 600 mg PO BID 07/24/15 [History] Lisinopril/Hydrochlorothiazide [Zestoretic 20-25 mg Tablet] 1 each PO DAILY 01/27 [History] Multivit-Min/FA/Lycopen/Lutein [Centrum Silver Tablet] 1 each PO DAILY 09/20/16 [History] 3 Allergy/AdvReac Type Severity Reaction Status Date / Time No Known Allergies Allergy Verified 12/23/16 07:01 - Meds/Allergy Pre-op Review Medications Reviewed: Yes Allergies Reviewed: Yes Beta Blockers on Current Med List: No Anesthesia Results - Labs Laboratory Tests 09/20/16 10/13/16 11/30/16 18:50 10:01 09:50 Hgb 15.1 Hct 44.3 Plt Count 268 PT 12.1 INR 1.1 APTT 29.3 Sodium Potassium BUN Creatinine 11/30/16 09:50 Hgb Hct Plt Count PT INR APTT Sodium 135 L Potassium 4.1 BUN 20 Creatinine 0.97 - Imaging EKG: report reviewed (sinus rhythm with PVCs) Anesthesia Exam Weight: 134kg NPO (# of Hours): 8 Pain Scale: 0 Pain Scale Used: Numeric (1 - 10) - HEENT Pupil (Motor): EOMI Mallampati: II Teeth: Edentulous Oral Opening: Greater than 3 - BUSHING AND BROACH OPERATOR LOC: Oriented BUSHING AND BROACH OPERATOR Motor: Normal RUE, Normal LUE, Normal RLE, Normal LLE, Normal Face BUSHING AND BROACH OPERATOR Sensory: Normal: RUE, LUE, RLE, LLE, Face - Cardiac Rhythm: Regular Murmur: None - Pulmonary Breath Sounds: bilateral Clear Respiratory Effort: Symmetrical Anesthesia Assess/Plan ASA Score: 3 Modified Ronni Scale for Level of Consciousness: Cooperative, oriented, and tranquil Anesthetic Plan: General Monitoring Plan: Standard Monitors Recovery Plan: PACU
--- NOTE | 2016-12-23 06:57 | History & Physical Report ---
Date of Encounter: 12/23/16 Time of Encounter: 06:57 24 Hour HP Update - Instructions Instructions: If the History and Physical is less than 30 days old and was completed prior to A.M. admission and or procedure and has NOT been updated on calendar day of procedure please complete this update prior to performing procedure. - Update Patient reports changes in Medical Condition: No Changes in examination, assessment, or condition: No Changes in Medication: No Preop tests/diagnostics Reviewed: Yes Surgery Remains Indicated: Yes Consent for Planned Operative Procedure(s) Verified: Yes - Pre-Operative Checklist Preoperative Checklist Indicated: Yes Prophylactic Antibiotic Ordered: Yes Home Medications Include Beta Chelsea: No Is VTE Prophylaxis Indicated?: Yes
[2016-12-23] MEDS ORDERED: *HR* Phenylephrine 10 MG/ML VIAL ONE (07:02)
[2016-12-23] MEDS ORDERED: CeFAZolin Pre 3,000 MG/100 ML 3,000 MG/100 ML BAG IVPB ONE (07:04)
[2016-12-23] MEDS ORDERED: Heparin 1,000 UNITS/500 mL NS 500 ML ONE (07:05)
[2016-12-23] MEDS ORDERED: Ringers Solution, Lactated 1,000 ML IVC SCH (07:15)
[2016-12-23] MEDS ORDERED: Albuterol 2.5 MG/3 ML NEBULIZER IH ONE (07:20)
[2016-12-23] MEDS ORDERED: Albuterol 2.5 MG/3 ML NEBULIZER ONE (07:22)
[2016-12-23] MEDS ORDERED: Bupivacaine-MPF 0.25% 10 ML VIAL ONE (07:23)
[2016-12-23] MEDS ORDERED: Mannitol 25% vial 12.5 GM/50 ML VIAL ONE ×2 (09:27→10:19)
[2016-12-23] MEDS ORDERED: *HR* HYDROmorphone 2 MG/ML SYRINGE ONE (09:27)
[2016-12-23] MEDS ORDERED: Dexamethasone 4 MG/ML VIAL ONE (09:35)
[2016-12-23] MEDS ORDERED: Ondansetron 4 MG/2 ML VIAL IVP ONE (09:55)
[2016-12-23] MEDS ORDERED: Dexamethasone 4 MG/ML VIAL IVP ONE (09:55)
[2016-12-23] MEDS ORDERED: *HR* Labetalol 20 MG/4 ML SYRINGE IVP PRN (09:55)
[2016-12-23] MEDS ORDERED: Ondansetron 4 MG/2 ML VIAL ONE (10:40)
[2016-12-23] MEDS ORDERED: Neostigmine Methylsulfate 3 MG/3 ML SYRINGE ONE (11:29)
--- NOTE | 2016-12-23 12:13 | Operative Note ---
Date of procedure: 12/23/16 Pre-op diagnosis: Left renal mass Post-op diagnosis: same Procedure: Left robotic-assisted partial nephrectomy Implants: 19 Argentine Pacheco drain. Fox catheter. Complications: None. Anesthesia: LES Surgeon: Ismael Cheatham Instructor Watch Assembly: Jona Gaviria Estimated blood loss (cc): 200 Specimen: left renal mass Condition: stable Disposition: PACU Procedure in Detail: Indications: Israel is a 61-year-old man who presents with a left renal mass. This is biopsy- proven positive for renal cell cancer. He elected to undergo a leftrobotic partial nephrectomy. He was informed of the risks of the procedure which include but are not limited to bleeding, infection, injury to other structures, need for further procedures, urine leak, bowel injury, need for complete nephrectomy, need for open conversion, and the risk of anesthesia. He is willing to proceed. Procedure After informed consent was obtained the patient was brought back to the operating room and placed in the supine position. A timeout was performed. Gen. anesthesia was then administered and an endotracheal tube was placed. Appropriate IV access was obtained. A Fox catheter was then placed. He was then placed in the flank position. His left side was up. All pressure points were padded. He was well secured to the table. He was then prepped and draped in the usual sterile fashion. We then marked out our incision lateral and superior to the umbilicus. A 10 mm incision was then made. The Veress needle was introduced. 2 clicks were heard. It passed the water drop test. Insufflation was then initiated. Pressures were low consecutively. The abdomen was insufflated. Once the pressure was up to 15, we inserted the 12 mm laparoscopic port with the visual obturator. Entry was obtained into the abdomen. The bowel was surveyed below and there is no evidence of bowel injury. Robotic ports were then inserted inferior and lateral to the camera port and superior to the camera port. A 12 mm port was placed for the power plant assistant inferior to the umbilicus. A 5 mm port was placed superior to the camera port. The third robotic arm was placed just over top of the iliac crest. The robot was docked. The bowel was reflected off the kidney along the white line of Toldt. The splenorenal attachments were divided. Once the bowel was reflected medially I did identify the gonadal vein. This was traced up to the renal vein. Dissection proceeded posterior to the renal vein where the artery was identified. Once the artery was dissected out I then proceeded to release the lateral attachments of the kidney. I was able to identify the mass under Gerota's. Gerota's was then opened. I dissected the fat around the kidney and identified the parenchyma of the kidney. The mass was scored with electrocautery circumferentially. Mannitol was then given. The renal artery was clamped using the bulldog. The tumor was excised sharply using cold scissors. Once the tumor was removed I utilized a 3-O V-LOC x 4 to close the deeper vessels in a running fashion. Hemostasis was then achieved along these vessels. I then closed the capsule to itself using 0 Vicryl suture in an interrupted fashion with the sliding clip renorrhaphy technique. Hemostasis was good. The bulldog clamp was removed. 37 minutes of warm ischemia time was noted. Once the bulldog clamp was removed and FloSeal was applied to the resection area. Hemostasis seemed adequate. A piece of Surgicel was placed over the defect. The Gerota's fascia was closed back over top of the kidney using a 0 Vicryl suture and the kidney was pexed back to the lateral sidewall. The specimen was removed in a specimen bag. The specimen was extracted through the assistance port after opening the skin and fascia slightly with electrocautery. A 19 [place] Pacheco drain was then placed. All the ports were then removed. The fascia of the extraction site was closed in a running fashion using an 0 Vicryl suture. The wounds were closed using 4-0 Monocryl suture. The drain was secured to the skin using a Nylon suture. Local anesthetic was infiltrated into the wounds. The abdomen was then washed and dried and Dermabond was applied to the wounds. The patient was then awakened from general anesthesia and brought to recovery room in good condition. All sponge, needle, and instrument counts were correct.
[2016-12-23] MEDS: *HR* HYDROmorphone (PF) 1 MG/ML SYRINGE IVP PRN ×3 (12:26→12:55)
--- NOTE | 2016-12-23 13:04 | Anesthesia Evaluation Post Op ---
Date of Encounter: 12/23/16 Time of Encounter: 13:03 - Vital Signs Vital Signs: Selected Entries 12/23/16 12:56 Temperature 97.1 F L Pulse Rate 93 Respiratory Rate 12 Blood Pressure 95/64 O2 Sat by Pulse Oximetry 93 Oxygen Flow Rate (LPM) 2 - Lungs Lungs: Clear Ascult./Percussion - Airway Airway: Non-obstructed - Cardiovascular Regular Rate - Mental Status Mental Status: Alert & Oriented, Answers Appropriately - Pain Pain Scale: 8 Pain Scale used: Numeric (1 - 10) - Nausea Vomiting Nausea Vomiting: Not Present - Hydration Hydration: Ice chips, Fox catheter - Discharge PostOp Status: Transfer Patient to floor
[2016-12-23] MEDS ORDERED: Ondansetron 4 MG/2 ML VIAL IVP PRN (14:53)
[2016-12-23] MEDS ORDERED: Acetaminophen 325 MG TABLET PO PRN (14:53)
[2016-12-23] MEDS ORDERED: Naloxone 0.4 MG/ML INJ IVP PRN (14:53)
[2016-12-23] MEDS ORDERED: *HR* HYDROmorphone (PF) 1 MG/ML SYRINGE IVP PRN (14:53)
[2016-12-23] MEDS: *HR* OxyCODONE Immed Rel 5 MG TABLET PO PRN ×2 (16:43→21:22)
[2016-12-23] MEDS: ceFAZolin 3,000 MG in D5% in Water 100 ML IVPB SCH (16:47)
[2016-12-23] MEDS: 0.9 % Sodium Chloride 1,000 ML IVC SCH ×2 (21:22→21:23)
[2016-12-24] MEDS: ceFAZolin 3,000 MG in D5% in Water 100 ML IVPB SCH ×2 (00:34→07:36)
[2016-12-24] MEDS: *HR* OxyCODONE Immed Rel 5 MG TABLET PO PRN ×3 (02:32→11:47)
[2016-12-24 03:45] LABS: Basophils % 0.1 %; Eosinophils % 0.1 %; Hemoglobin 13.2 g/dL (12.9-16.9); Immature Granulocytes % 0.5 % (0-4); Lymphocytes # 1.4 K/mcL (0.6-4.6); Lymphocytes % 13.6 %; Mean Corpuscular HGB Conc 34.7 g/dL (31.6-35.5); Mean Corpuscular Hemoglobin 32.4 pg (28.0-33.3); Mean Corpuscular Volume 93.1 fL (83.0-100.0); Mean Platelet Volume 9.7 fL (9.4-12.4); Monocytes % 10.2 %; Neutrophils # 7.6 K/mcL (1.6-8.9); Platelet Count 234 K/mcL (140-400); Red Blood Count 4.08 M/mcL (4.19-5.50); Red Cell Distribution Width 14.3 % (11.5-14.5); Segmented Neutrophils % 75.5 %
[2016-12-24 04:01] LABS: BUN/Creatinine Ratio 18 (6-26); Blood Urea Nitrogen 23 mg/dL (8-26); Carbon Dioxide 24 mEq/L (19-29); Chloride 103 mEq/L (98-109); Glucose 106 mg/dL (70-99); Osmolality,Calculated 286 (280-300); Potassium 4.1 mEq/L (3.5-4.5); Sodium 136 mEq/L (136-145); eGFR For African Americans > 60 (> 60); eGFR For Non-African Americans 56 (> 60)
[2016-12-24] MEDS: 0.9 % Sodium Chloride 1,000 ML IVC SCH (06:33)
--- NOTE | 2016-12-24 08:08 | Urology Progress Note ---
Date of Encounter: 12/24/16 Time of Encounter: 08:06 - Assessment and Plan (1) Renal cell carcinoma Current Visit: No Status: Chronic Assessment and plan: Status post left robotic partial nephrectomy. His urine was somewhat bloody last night which is indicative of collecting system entry. This was closed at the time of the surgery. He is doing well today. His drain output has been scant. We will discontinue the Fox today. Advance diet to clears this morning and if he tolerates will move to a general diet today for lunch. Anticipate discharge home later today if he is doing well. Qualifiers: Laterality: left Qualified Code(s): C64.2 - Malignant neoplasm of left kidney, except renal pelvis Progress Note Narrative: Postop day 1 status post left robotic partial nephrectomy. He is doing well. His pain is well-controlled. He was able to stand up yesterday. He is tolerating ice chips. Objective Initial Vital Signs Temp Pulse Resp BP Pulse Ox 97.7 F 75 16 133/88 94 12/23/16 07:13 12/23/16 07:13 12/23/16 07:13 12/23/16 07:13 12/23/16 07:13 - General physical appearance Present: well developed, well nourished, no distress - Respiratory Present: normal respiratory effort - Abdomen Present: soft (Incisions are clean and dry and intact. BIANCA drain shows scant serosanguineous fluid.) - Genitourinary Urine Appearance: Present: Clear - Labs 12/24/16 03:05 12/24/16 03:05 Diabetes panel 12/24/16 Range/Units 03:05 Sodium 136 (136-145) mEq/L Potassium 4.1 (3.5-4.5) mEq/L Chloride 103 (98-109) mEq/L Carbon Dioxide 24 (19-29) mEq/L BUN 23 (8-26) mg/dL Creatinine 1.31 H (0.72-1.25) mg/dL Glucose 106 H (70-99) mg/dL Calcium 9.0 (8.6-10.8) mg/dL Calcium panel 12/24/16 Range/Units 03:05 Calcium 9.0 (8.6-10.8) mg/dL Pituitary panel 12/24/16 Range/Units 03:05 Sodium 136 (136-145) mEq/L Potassium 4.1 (3.5-4.5) mEq/L Chloride 103 (98-109) mEq/L Carbon Dioxide 24 (19-29) mEq/L BUN 23 (8-26) mg/dL Creatinine 1.31 H (0.72-1.25) mg/dL Glucose 106 H (70-99) mg/dL Calcium 9.0 (8.6-10.8) mg/dL Adrenal panel 12/24/16 Range/Units 03:05 Sodium 136 (136-145) mEq/L Potassium 4.1 (3.5-4.5) mEq/L Chloride 103 (98-109) mEq/L Carbon Dioxide 24 (19-29) mEq/L BUN 23 (8-26) mg/dL Creatinine 1.31 H (0.72-1.25) mg/dL Glucose 106 H (70-99) mg/dL Calcium 9.0 (8.6-10.8) mg/dL - VTE Documentation of Mechanical Device: Graduated compression elastic hosiery Consult Discharge Plan - Plan Referrals: Nisha Brewer MD [Primary Care Provider] -
[2016-12-24 11:06] VITALS: BP 129/85
--- NOTE | 2016-12-24 13:01 | Discharge Summary ---
Date of Encounter: 12/24/16 Time of Encounter: 12:55 - Discharge Diagnosis (1) Renal cell carcinoma Priority: Primary Status: Chronic Qualifiers: Laterality: left Qualified Code(s): C64.2 - Malignant neoplasm of left kidney, except renal pelvis - Discharge Medications Prescriptions: OxyCODONE Immed Rel [Roxicodone 5 MG] 10 mg PO Q4HR PRN #25 tablet PRN Reason: Moderate Pain Docusate [Colace] 100 mg PO BID #60 capsule Home Medications: Gemfibrozil [Lopid] 600 mg PO BID 07/24/15 [History] Lisinopril/Hydrochlorothiazide [Zestoretic 20-25 mg Tablet] 1 each PO DAILY 01/27 [History] Multivit-Min/FA/Lycopen/Lutein [Centrum Silver Tablet] 1 each PO DAILY 09/20/16 [History] Docusate [Colace] 100 mg PO BID #60 capsule 12/24/16 [Rx] OxyCODONE Immed Rel [Roxicodone 5 MG] 10 mg PO Q4HR PRN #25 tablet 12/24/16 [Rx] Allergies/Adverse Reactions: 3 Allergy/AdvReac Type Severity Reaction Status Date / Time No Known Allergies Allergy Verified 12/23/16 07:01 Labs on day of discharge: Labs from last 24 hours 12/24/16 12/24/16 12/24/16 05:58 03:05 03:05 WBC 10.1 RBC 4.08 L Hgb 13.2 Hct 38.0 MCV 93.1 MCH 32.4 MCHC 34.7 RDW 14.3 Plt Count 234 MPV 9.7 Immature Gran % 0.5 Seg Neutrophils % 75.5 Lymphocytes % 13.6 Monocytes % 10.2 Eosinophils % 0.1 Basophils % 0.1 Neutrophils # 7.6 Lymphocytes # 1.4 Monocytes # 1.0 Eosinophils # 0.0 Basophils # 0.0 Sodium 136 Potassium 4.1 Chloride 103 Carbon Dioxide 24 BUN 23 Creatinine 1.31 H Est GFR ( Amer) > 60 Est GFR (Non-Af Amer) 56 L BUN/Creatinine Ratio 18 Glucose 106 H POC Glucose 124 H Calculated Osmolality 286 Calcium 9.0 12/24/16 00:38 WBC RBC Hgb Hct MCV MCH MCHC RDW Plt Count MPV Immature Gran % Seg Neutrophils % Lymphocytes % Monocytes % Eosinophils % Basophils % Neutrophils # Lymphocytes # Monocytes # Eosinophils # Basophils # Sodium Potassium Chloride Carbon Dioxide BUN Creatinine Est GFR ( Amer) Est GFR (Non-Af Amer) BUN/Creatinine Ratio Glucose POC Glucose 114 H Calculated Osmolality Calcium Date of admission: 12/23/16 14:35 Primary care physician: James Shipley Discharging clinician: Ismael Cheatham Anticipated date of discharge: 12/24/16 - Patient Status Disposition: Home, Self-Care Condition: Good Functional capacity at discharge: independent ambulation Overall status at discharge: patient is progressing back to baseline - Discharge Instructions Follow Up With: Ismael Cheatham MD [Partnered Physician] - (2 week for post op check.) Additional Instructions: 1. No heavy lifting x 2 weeks. 2. Okay to shower. 3. No tub baths x 2 weeks. 4. Call for any fevers, chills, nausea, vomitting, worsening hematuria, or fainting. 5. Follow with Dr. Cheatham in 2 weeks. - Diet and Activity Activity: increase activity as tolerated Diet: advance to your usual diet - Hospital Course Hospital course: Mr. Beck is a 61 year old male with a history of a left renal mass. On 2016 he underwent a left robotic partial nephrectomy. He did well after surgery. He was discharged home on POD #1 after an uneventful stay. - Time Spent with Patient Total time spent providing and/or coordinating discharge services: Less than 30 minutes Exam Initial Vital Signs Temp Pulse Resp BP Pulse Ox 97.7 F 75 16 133/88 94 12/23/16 07:13 12/23/16 07:13 12/23/16 07:13 12/23/16 07:13 12/23/16 07:13 - General physical appearance Present: well developed, well nourished, no distress - Eyes Absent: icteric - ENT Present: normal nares - Neck Present: trachea midline - Respiratory Present: normal respiratory effort - Cardiovascular Cardiovascular exam IM: RRR - Abdomen Abdomen: Present: soft (appropriately tender. Incisions are clean, dry, intact. BIANCA removed. Drain site with dressing.) - VTE Documentation of Mechanical Device: Graduated compression elastic hosiery
== END 2016-12-24 13:28 | disposition home or self-care (01) | DRG 442 ==
LOC: SAMDAY 06:35 → 3ANU 14:35
PROVIDERS: ADMIT Urology; ATTEND Urology

== ENCOUNTER 2017-11-21 10:25 | Inpatient (IN) ==
[2017-11-21] MEDS ORDERED: Albuterol 2.5 MG/3 ML NEBULIZER IH ONE (10:40)
[2017-11-21] MEDS ORDERED: cefOXitin 2,000 MG in Water for inj. (sterile) 20 ML 20 ML IVP ONE (10:40)
[2017-11-21] MEDS ORDERED: Ringers Solution, Lactated 1,000 ML IVC SCH (10:45)
--- NOTE | 2017-11-21 10:46 | History & Physical Report ---
Date of Encounter: 11/21/17 Time of Encounter: 10:45 24 Hour HP Update - Instructions Instructions: If the History and Physical is less than 30 days old and was completed prior to A.M. admission and or procedure and has NOT been updated on calendar day of procedure please complete this update prior to performing procedure. - Update Patient reports changes in Medical Condition: No Changes in examination, assessment, or condition: No Changes in Medication: No Preop tests/diagnostics Reviewed: Yes Pre-Op MRSA Screen: Negative Surgery Remains Indicated: Yes Consent for Planned Operative Procedure(s) Verified: Yes - Pre-Operative Checklist Preoperative Checklist Indicated: No Prophylactic Antibiotic Ordered: Yes Home Medications Include Beta Chelsea: No Beta Chelsea Taken Today (Day of Surgery): No Beta Chelsea Taken Yesterday (Day Prior to Surgery): No Is VTE Prophylaxis Indicated?: NO
--- NOTE | 2017-11-21 11:26 | Anesthesia Evaluation PreOp ---
Date of Encounter: 11/21/17 Time of Encounter: 11:23 - Past History Planned Operation: Robotic Right Colon Resection Cardiac History: HTN, Hyperlipidemia Pulmonary History: Smoker (45 years), COPD PAPERHANGER History: Denies Any Significant HX Other Medical History: Renal (kidney stones, H/O renal CA S/P partial left nephrectomy) Anesthesia History: No Prior Anesthetic Complications, Past Anesthesia Alcohol Use: none Drug use: none Medications and Allergies Gemfibrozil [Lopid] 600 mg PO BID 07/24/15 [History] Lisinopril/Hydrochlorothiazide [Zestoretic 20-25 mg Tablet] 1 each PO DAILY 01/27 [History] 3 Allergy/AdvReac Type Severity Reaction Status Date / Time No Known Allergies Allergy Verified 11/21/17 10:54 - Meds/Allergy Pre-op Review Medications Reviewed: Yes Allergies Reviewed: Yes Beta Blockers on Current Med List: No Anesthesia Results - Labs Laboratory Tests 09/20/16 10/13/16 10/16/17 18:50 10:01 13:05 WBC Hgb Hct Plt Count PT 12.1 INR 1.1 APTT 29.3 Sodium 135 L Potassium BUN 17 Creatinine 11/10/17 11/10/17 09:12 09:12 WBC 6.1 Hgb 14.0 Hct 39.4 Plt Count 210 PT INR APTT Sodium Potassium 3.8 BUN Creatinine 1.16 - Imaging EKG: report reviewed (11/10/2017 SINUS RHYTHM WITH FREQUENT ECTOPIC PREMATURE COMPLEXES MARKED LEFT AXIS DEVIATION) Anesthesia Exam O2 Sat Height 1.83 m Height 1.83 m Weight 133.81 kg Weight 133.81 kg O2 Sat by Pulse Oximetry 100 O2 Sat by Pulse Oximetry 100 Vital Signs Temp Pulse Resp BP Pulse Ox 98.6 F 71 18 99/78 100 11/21/17 10:46 11/21/17 10:46 11/21/17 10:46 11/21/17 10:46 11/21/17 10:46 Height: 6' Weight: 295 lbs NPO (# of Hours): 8 Pain Scale: 0 Pain Scale Used: Numeric (1 - 10) - HEENT Pupil (Motor): EOMI Mallampati: II Teeth: Edentulous Denture Type: Upper: Complete, Lower: Complete Oral Opening: Greater than 3 - PAPERHANGER LOC: Oriented PAPERHANGER Motor: Normal RUE, Normal LUE, Normal RLE, Normal LLE, Normal Face PAPERHANGER Sensory: Normal: RUE, LUE, RLE, LLE, Face - Cardiac Rhythm: Regular Murmur: None - Pulmonary Breath Sounds: bilateral Clear Respiratory Effort: Symmetrical Anesthesia Assess/Plan ASA Score: 3 Modified [place] Scale for Level of Consciousness: Cooperative, oriented, and tranquil Anesthetic Plan: General Monitoring Plan: Standard Monitors Recovery Plan: PACU
[2017-11-21] MEDS ORDERED: Dexamethasone 4 MG/ML VIAL ONE (11:35)
[2017-11-21] MEDS ORDERED: *HR* Rocuronium Bromide 50 MG/5 ML VIAL ONE (11:37)
[2017-11-21] MEDS ORDERED: Ondansetron 4 MG/2 ML VIAL ONE ×2 (11:37→17:30)
[2017-11-21] MEDS ORDERED: *HR* Succinylcholine 200 MG/10 ML VIAL IVP ONE (11:37)
[2017-11-21] MEDS ORDERED: Lidocaine -MPF 2% 2 ML VIAL ONE (11:37)
--- NOTE | 2017-11-21 12:09 | History & Physical Report ---
Date of Encounter: 11/21/17 Time of Encounter: 12:08 24 Hour HP Update - Instructions Instructions: If the History and Physical is less than 30 days old and was completed prior to A.M. admission and or procedure and has NOT been updated on calendar day of procedure please complete this update prior to performing procedure. - Update Patient reports changes in Medical Condition: No Changes in examination, assessment, or condition: No Changes in Medication: No Preop tests/diagnostics Reviewed: Yes Pre-Op MRSA Screen: Negative Surgery Remains Indicated: Yes Consent for Planned Operative Procedure(s) Verified: Yes - Pre-Operative Checklist Preoperative Checklist Indicated: No Prophylactic Antibiotic Ordered: Yes Home Medications Include Beta Chelsea: No Beta Chelsea Taken Today (Day of Surgery): No Beta Chelsea Taken Yesterday (Day Prior to Surgery): No Is VTE Prophylaxis Indicated?: NO
[2017-11-21] MEDS ORDERED: *HR* Propofol 200 MG/20 ML VIAL IVP ONE (12:33)
[2017-11-21] MEDS ORDERED: Bupivacaine/EPI 1:200k 0.5%PF 30 ML VIAL ONE (12:33)
[2017-11-21] MEDS ORDERED: Ondansetron 4 MG/2 ML VIAL IVP ONE (12:44)
[2017-11-21] MEDS ORDERED: *HR* Labetalol 20 MG/4 ML SYRINGE IVP PRN (12:44)
[2017-11-21] MEDS ORDERED: *HR* HYDROmorphone (PF) 1 MG/ML SYRINGE IVP PRN (12:44)
[2017-11-21] MEDS ORDERED: *HR* OxyCODONE Immed Rel 5 MG TABLET PO PRN (12:44)
[2017-11-21] MEDS ORDERED: *HR* HYDROmorphone 2 MG/ML SYRINGE ONE (12:48)
[2017-11-21] MEDS ORDERED: Acetaminophen IV 1,000 MG/100 ML INFUS..BTL ONE (12:48)
[2017-11-21] MEDS ORDERED: EPHEDrine 50 MG/ML VIAL ONE (13:12)
[2017-11-21] MEDS ORDERED: *HR* Remifentanil 1 MG VIAL IVP ONE ×2 (14:13→15:40)
[2017-11-21] MEDS ORDERED: Nitroglycerin 1 INCH/GM PACKET ONE (14:30)
[2017-11-21] MEDS ORDERED: Esmolol 100 MG/10 ML VIAL IVP ONE (14:42)
[2017-11-21] MEDS ORDERED: *HR* Metoprolol 5 MG/5 ML VIAL IVP ONE (14:42)
[2017-11-21] MEDS ORDERED: *HR* Remifentanil 2 MG VIAL IVP ONE (15:39)
[2017-11-21] MEDS ORDERED: *HR* PHENYLEPHRINE 1,000 MCG/10 ML SYRINGE IVP ONE (15:45)
[2017-11-21] MEDS ORDERED: CefOXitin 2,000 MG VIAL ONE (16:22)
[2017-11-21] MEDS ORDERED: *HR* Phenylephrine 10 MG/ML VIAL ONE (16:35)
[2017-11-21] MEDS ORDERED: Neostigmine Methylsulfate 3 MG/3 ML SYRINGE ONE (17:30)
[2017-11-21] MEDS ORDERED: *HR* Morphine 10 MG/ML VIAL ONE (17:43)
--- NOTE | 2017-11-21 17:57 | History & Physical Report ---
Date of Encounter: 11/21/17 Time of Encounter: 17:56 24 Hour HP Update - Instructions Instructions: If the History and Physical is less than 30 days old and was completed prior to A.M. admission and or procedure and has NOT been updated on calendar day of procedure please complete this update prior to performing procedure. - Update Patient reports changes in Medical Condition: No Changes in examination, assessment, or condition: No Changes in Medication: No Preop tests/diagnostics Reviewed: Yes Pre-Op MRSA Screen: Negative Surgery Remains Indicated: Yes Consent for Planned Operative Procedure(s) Verified: Yes - Pre-Operative Checklist Preoperative Checklist Indicated: No Prophylactic Antibiotic Ordered: Yes Home Medications Include Beta Chelsea: No Beta Chelsea Taken Today (Day of Surgery): No Beta Chelsea Taken Yesterday (Day Prior to Surgery): No Is VTE Prophylaxis Indicated?: NO
--- NOTE | 2017-11-21 17:58 | Operative Note ---
Date of procedure: 11/21/17 Pre-op diagnosis: Right colon cancer Post-op diagnosis: same Procedure: Robot assisted right hemicolectomy Anesthesia: GETA Surgeon: Dany Foster Was there an nursing home assistant administrator present: Yes Management Sme: Shari Pleitez Estimated blood loss (cc): 200 Specimen: right colon Condition: stable Disposition: PACU Procedure in Detail: Date of surgery: 11/21/17 After properly identifying the patient, the patient was brought to the operating room and placed in the supine position. After proper IV sedation was achieved followed by general endotracheal intubation, the patient's abdomen was prepped and draped in a normal sterile fashion. A timeout was performed noting the patient's name and type of procedure to be performed. An 11 blade scalpel was used to make an incision just above the umbilicus down to the rectus fascia which was also incised. A 12 mm port was then placed in the abdomen and the abdomen was insufflated with carbon dioxide. A laparoscopic camera was placed to the port which showed no injury to the intra- abdominal organs upon entry. A subxiphoid a 8mm right lower quadrant port was then placed under direct camera visualization followed by placement of two 8 mm ports in the left upper quadrant. The patient was placed in a reverse Trendelenburg position and the da Claire robot was brought towards the operative field and docked appropriately. The omentum was retracted superiorly above the level of the liver and the transverse colon was then retracted superiorly. The mesentery was scored with Bovie cauterization and dissection was carried superiorly towards the duodenum which was identified and retracted downward. Dissection was then carried superiorly up until the liver was encountered. The dissection was then carried from superior to inferior through the mesentery with robot laparoscopic vessel sealer down towards the level of the cecum. There was evidence of a cecal mass causing retraction of the surrounding mesentery as well as retraction at the level of the left lateral sidewall. The mesentery was scored inferiorly around this mass and dissection was then carried down towards the distal ileum. The distal ileum was transected with a laparoscopic AMARILYS stapler and dissection of the tissue surrounding this embedded cecal mass was performed with Bovie cauterization and utilization of the vessel sealer. This allowed for further retraction of the cecum superiorly and eventual dissection of this mass away from the mesentery. Further dissection across the mesentery was performed with a laparoscopic vessel sealer and once this was performed and the cecum freed the lateral sidewall attachments were dissected off the sidewall with Bovie cauterization. The mid transverse colon was identified and then transected with a laparoscopic AMARILYS stapler and the intervening mesentery was further transected with a vessel sealer. Once this was performed in this tissue completely excised the decision was made to go ahead and perform a intracorporeal [id number] anastomosis. Of note, ICG was used to identify the areas of the transverse colon receiving a significant amount of blood flow so that the transection occurred the viable portion of the colon. The distal ileum was tacked to the transverse colon with interrupted 3-0 silk sutures. Bovie cauterization was used to create an enterotomy along the small bowel and transverse colon segment and a laparoscopic AMARILYS stapler was then used to to perform a cxuw-qw-tzna anastomosis. The enterotomy was closed in 2 layers with a 3-0 V locked suture and a 3-0 silk suture. Once this was performed and the anastomosis noted to be maintained and the decision was made to complete the surgical procedure by removing all ports and desufflated the abdomen. A 10 blade scalpel was then used to make an incision from the level of the supraumbilical incision superiorly for length of approximately 7 cm. Bovie cauterization was used to dissected the subcutaneous tissue and rectus fascia into the abdomen was entered and a wound protector was placed through the incision. The colonic segment was then removed from the abdomen and submitted to pathology. The fascia was reapproximated with 0 PDS sutures 2. The subcutis tissue was reapproximated with 2-0 Vicryl sutures and the epidermal and dermal layers for the remaining incisions were closed with yumiko. Needle, sponge, and instrument counts were correct 2 and the incisions were covered with 4 x 4's and Band-Aids. The patient was aroused from IV sedation, extubated in the operating room without complication, and transported to the recovery room stable condition.
[2017-11-21] MEDS ORDERED: Naloxone 0.4 MG/ML INJ IVP PRN (19:15)
[2017-11-21] MEDS ORDERED: OXYCODONE Oral CONC 10 MG/0.5 ML ORAL.SYG SL PRN (19:15)
[2017-11-21] MEDS ORDERED: *HR* OxyCODONE Oral Soln 5 MG/5 ML UD.LIQ PO PRN (19:15)
[2017-11-21 19:36] LABS: Basophils % 0.2 %; Eosinophils % 0.1 %; Hematocrit 38.4 % (37.5-50.1); Hemoglobin 13.7 g/dL (12.9-16.9); Immature Granulocytes % 0.7 % (0-4); Lymphocytes # 0.4 K/mcL (0.6-4.6); Lymphocytes % 3.4 %; Mean Corpuscular HGB Conc 35.7 g/dL (31.6-35.5); Mean Corpuscular Hemoglobin 32.9 pg (28.0-33.3); Mean Corpuscular Volume 92.3 fL (83.0-100.0); Mean Platelet Volume 9.5 fL (9.4-12.4); Monocytes # 0.3 K/mcL (0.0-1.3); Monocytes % 2.4 %; Neutrophils # 11.5 K/mcL (1.6-8.9); Platelet Count 191 K/mcL (140-400); Red Blood Count 4.16 M/mcL (4.19-5.50); Red Cell Distribution Width 13.5 % (11.5-14.5); Segmented Neutrophils % 93.2 %
[2017-11-21] MEDS: cefOXitin 1,000 MG in Water for inj. (sterile) 20 ML 10 ML IVP SCH (23:41)
[2017-11-21] MEDS: Ketorolac 15 MG/ML VIAL IVP SCH (23:41)
[2017-11-22] MEDS: 0.9 % Sodium Chloride 1,000 ML IVC SCH ×3 (03:09→22:43)
[2017-11-22] MEDS: Ketorolac 15 MG/ML VIAL IVP SCH ×3 (05:24→18:00)
[2017-11-22 05:44] LABS: Calcium 8.7 mg/dL (8.6-10.3); Potassium 4.4 mEq/L (3.5-5.1)
[2017-11-22] MEDS: cefOXitin 1,000 MG in Water for inj. (sterile) 20 ML 10 ML IVP SCH ×2 (10:19→16:20)
[2017-11-22] MEDS: Pantoprazole 40 MG VIAL IVP SCH (10:19)
--- NOTE | 2017-11-22 10:56 | General Surgery Progress Note ---
<Tea Golden - Last Filed: 11/22/17 11:13> Date of Encounter: 11/22/17 Time of Encounter: 10:53 - Assessment and Plan (1) Colon cancer Current Visit: Yes Status: Acute Date of procedure: 11/21/17 Pre-op diagnosis: Right colon cancer Post-op diagnosis: same Procedure: Robot assisted right hemicolectomy Anesthesia: GETA Surgeon: Dany Foster Was there an statistical assistant present: Yes Gas Truck Driver: Shari Pleitez Estimated blood loss (cc): 200 POD #1 as above. Postoperative exam is as expected. OK to advance to [facility]D after seen by cardiology Continue supportive care and discomfort management resume home medications continue IVF given BELEM ambulate TID and as tolerated out of bed to chair TID and for all trays DC Jaeger catheter serial abdominal exams repeat a.m. labs continue G.I. and DVT prophylaxis Qualifiers: Colon location: unspecified part of colon Qualified Code(s): C18.9 - Malignant neoplasm of colon, unspecified (2) Elevated troponin I level Current Visit: Yes Status: Acute consult cardiology. Tepeat EKG completed. BNP pending. Spoke with Dr. Lux. Appreciate cardiology recommendations. (3) Renal cyst Current Visit: No Status: Chronic renal function stable but with BELEM, will continue IVF (4) Tobacco abuse Current Visit: No Status: Acute aggressive pulm toileting IS [place], scheduled Q4 hours for 24 hours then reduce to PRN (5) HTN (hypertension) Current Visit: Yes Status: Chronic Continue home meds in the am Qualifiers: Hypertension type: essential hypertension Qualified Code(s): I10 - Essential (primary) hypertension (6) Renal cell carcinoma Current Visit: No Status: Chronic Per oncology notes: Oncology History: Diagnosis: 1. 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 2. Nonspecific left lower lobe pulmonary nodule 3. 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 Cheatham. 4. Tobacco abuse Prior therapy: 1. Adjuvant BCG 09/02-10/08/15 Treatment intent: Curative Qualifiers: Laterality: left Qualified Code(s): C64.2 - Malignant neoplasm of left kidney, except renal pelvis (7) Morbid obesity with BMI of 40.0-44.9, adult Current Visit: Yes Status: Acute standing scale weight check hgb A1c dietary consult Subjective Patient reports: no new complaints, still having pain (controlled), voiding w/o difficulty (per jaeger; reports history of prostate problems that were resolved after TURP ), no flatus, no bowel movement, afebrile Objective Vital Signs - Last 8 Hours Temp Pulse Resp BP Pulse Ox 11/22/17 10:06 97.6 F 52 15 111/68 93 11/22/17 06:41 97.5 F L 57 14 109/66 95 11/22/17 04:38 97.4 F L 69 14 120/72 94 Intake and Output 11/21/17 11/22/17 11/22/17 23:59 07:59 15:59 Intake Total 180 / 180 0 / 0 Output Total 350 / 350 600 / 600 0 / 0 Balance -340 / -340 -420 / -420 0 / 0 Intake: IV Fluids Mefoxin 1,000 MG In Water for inj. (sterile) 10 ML @ 300 mls/ hr IVP Q8HR NELLA Rx#:[id number] Oral 180 / 180 0 / 0 Output: Estimated Blood Loss 200 / 200 Urine Amount (Catheter) 150 / 150 Catheter 600 / 600 0 / 0 Other: # Bowel Movements 0 Weight 134.5 kg Blood Glucose* 131 Patient Weight 11/22/17 23:59 Weight 134.5 kg - General physical appearance no distress, obese - ENT normal mucosa - Neck Neck exam: trachea midline - Respiratory other (decreased, course) - Cardiovascular Cardiovascular exam: Present: bradycardia, distant heart sounds - Abdomen Abdomen: Present: bowel sounds present, soft, tender (expected postoperatively) Hernia: none - Incision Incision: Present: clean and dry, intact - Integumentary no rash - Neurologic normal coordination, normal sensation - Musculoskeletal normal posture - Psychiatric oriented to time, oriented to person, oriented to place, speech is normal, memory intact - Labs 11/21/17 19:30 11/22/17 04:24 Diabetes panel 11/22/17 Range/Units 04:24 Sodium 135 L (136-145) mEq/L Potassium 4.4 (3.5-5.1) mEq/L Chloride 106 (98-107) mEq/L Carbon Dioxide 21 L (23-29) mEq/L BUN 27 H (8-23) mg/dL Creatinine 1.46 H (0.70-1.30) mg/dL Glucose 124 H (70-105) mg/dL Calcium 8.7 (8.6-10.3) mg/dL Calcium panel 11/22/17 Range/Units 04:24 Calcium 8.7 (8.6-10.3) mg/dL Pituitary panel 11/22/17 Range/Units 04:24 Sodium 135 L (136-145) mEq/L Potassium 4.4 (3.5-5.1) mEq/L Chloride 106 (98-107) mEq/L Carbon Dioxide 21 L (23-29) mEq/L BUN 27 H (8-23) mg/dL Creatinine 1.46 H (0.70-1.30) mg/dL Glucose 124 H (70-105) mg/dL Calcium 8.7 (8.6-10.3) mg/dL Adrenal panel 11/22/17 Range/Units 04:24 Sodium 135 L (136-145) mEq/L Potassium 4.4 (3.5-5.1) mEq/L Chloride 106 (98-107) mEq/L Carbon Dioxide 21 L (23-29) mEq/L BUN 27 H (8-23) mg/dL Creatinine 1.46 H (0.70-1.30) mg/dL Glucose 124 H (70-105) mg/dL Calcium 8.7 (8.6-10.3) mg/dL Consult Discharge Plan - Plan Instructions: Colectomy (DC) Additional Instructions: General Surgical Discharge Instructions 1. No pushing, pulling, or lifting greater than 15 lbs for 2-4 weeks (depending upon procedure). 2. You may shower beginning today, but no tub baths, soaking, or swimming for 2 weeks. 3. You may resume driving when you are off narcotics and are safe to react in a car. 4. Take ibuprofen every 8 hours for discomfort. If this does not relieve discomfort, you may take the as needed Percocet. Take narcotics as directed. Do not take more narcotics then directed and do not share your narcotics with any other person. Do not drink alcohol while on narcotics. 5. Take stool softeners (Colace) or a water based laxative (Miralax) while taking narcotics. You may hold for loose stools. 6. Report any fevers greater than 100.5F, increase abdominal discomfort, drainage that looks like pus, increased redness or pain at the surgical site, or any vomiting. 7. Report any pain in the calves, shortness of breath, or rapid heartbeat. 8. Follow-up in the office as directed. 9. If you were prescribed antibiotics, do not stop them without talking to your provider. You need to follow-up with your primary care provider for a stress test as an outpatient. Follow up with your oncologist as directed. Referrals: Dany Foster MD [Partnered Physician] - 12/06/17 8:00 am Nisha Brewer MD [Primary Care Provider] - Prescriptions: OxyCODONE/APAP 5/325 [Percocet 5/325 MG] 1 each PO Q6HR PRN 7 Days #28 tablet PRN Reason: Pain Docusate [Colace] 100 mg PO BID #30 capsule <Dany Foster - Last Filed: 11/23/17 12:27> Date of Encounter: 11/22/17 Objective Vital Signs - Last 8 Hours Temp Pulse Resp BP Pulse Ox 11/23/17 11:10 16 99 11/23/17 10:29 97.8 F 76 18 154/88 97 11/23/17 07:33 16 98 11/23/17 07:01 98.0 F 70 18 167/86 96 11/23/17 04:58 99.2 F 78 13 103/67 95 Intake and Output 11/22/17 11/23/17 11/23/17 23:59 07:59 15:59 Intake Total 1560 / 1560 960 / 960 360 / 360 Output Total 900 / 900 1050 / 1050 Balance 660 / 660 -90 / -90 360 / 360 Intake: IV Fluids 1010 / 1010 0.9 % Sodium Chloride 1,000 ML 1000 / 1000 @ 100 mls/hr IVC .Q10H NELLA Rx#: [id number] Mefoxin 1,000 MG In Water for inj. (sterile) 10 ML @ 300 mls/ hr IVP Q8HR NELLA Rx#:[id number] Oral 550 / 550 960 / 960 360 / 360 Output: Urine 900 / 900 1050 / 1050 Other: Meal Breakfast Weight 136 kg Patient Weight 11/23/17 23:59 Weight 136 kg - Labs 11/23/17 00:28 11/23/17 00:28 Diabetes panel 11/23/17 11/23/17 Range/Units 00:28 00:28 Sodium 136 (136-145) mEq/L Potassium 3.3 L (3.5-5.1) mEq/L Chloride 108 H (98-107) mEq/L Carbon Dioxide 21 L (23-29) mEq/L BUN 27 H (8-23) mg/dL Creatinine 1.27 (0.70-1.30) mg/dL Glucose 99 (70-105) mg/dL Hemoglobin A1c 5.6 ( - 5.6) % Calcium 8.3 L (8.6-10.3) mg/dL Calcium panel 11/23/17 Range/Units 00:28 Calcium 8.3 L (8.6-10.3) mg/dL Pituitary panel 11/23/17 Range/Units 00:28 Sodium 136 (136-145) mEq/L Potassium 3.3 L (3.5-5.1) mEq/L Chloride 108 H (98-107) mEq/L Carbon Dioxide 21 L (23-29) mEq/L BUN 27 H (8-23) mg/dL Creatinine 1.27 (0.70-1.30) mg/dL Glucose 99 (70-105) mg/dL Calcium 8.3 L (8.6-10.3) mg/dL Adrenal panel 11/23/17 Range/Units 00:28 Sodium 136 (136-145) mEq/L Potassium 3.3 L (3.5-5.1) mEq/L Chloride 108 H (98-107) mEq/L Carbon Dioxide 21 L (23-29) mEq/L BUN 27 H (8-23) mg/dL Creatinine 1.27 (0.70-1.30) mg/dL Glucose 99 (70-105) mg/dL Calcium 8.3 L (8.6-10.3) mg/dL - Attending Attestation I have personally performed a face to face evaluation on this patient. I have reviewed and agree with the care plan. History and Exam by me shows: Reviewed the above assessment and evaluation and agree with the above plan.
[2017-11-22] MEDS: Ipratropium/Albuterol Neb 3 ML IH SCH ×4 (11:42→23:11)
--- NOTE | 2017-11-22 14:23 | Cardiology Consult Note ---
<Arnold Davis - Last Filed: 11/22/17 14:17> Date of Encounter: 11/22/17 Time of Encounter: 14:17 Assessment and Plan (1) Elevated troponin I level Current Visit: Yes Status: Acute Mild troponin elevation. Unclear significance at this point, noted to have BELEM and may be demand ischemia. Noted to have ST depression on EKG/tele during general anesthesia. Appeared vital signs were stable at that time. Noted to have some hypotension during surgery. F/u EKG shows SR with no acute ST changes. No cardiac symptoms. Continue to to trend troponin. TTE ordered. Discussion w patient/family: The assessment and plan as outlined above was discussed with the patient and/or family members who expressed understanding and agreement. All questions were answered. Thank you for involving us in the care of your patient. Please call with any questions. History of Present Illness Consult date: 11/22/17 Requesting physician: Dany Foster Consult reason: EKG changes during surgery Chief complaint: S/p colon resection History of present illness: Mr. Beck is a 62 year old male with past medical history significant for HTN, HLD, tobacco use, partial nephrectomy for renal cancer, and recent diagnosis colon cancer s/p colon resection 11/21/17. Cardiology consulted for elevated troponin that ordered due to EKG changes seen during surgery. Per anesthesia record at 1430 he was noted to have ST depression on EKG. I do not see actual EKG. Looks like vitals signs stable otherwise at that time .F/u EKG this morning shows SR with no ST changes. He denies chest pain, SOB, or palpitations. Denies orthopnea, PND, or edema. Denies history of CAD or prior cardiac workup. Past Med Surg Social Fam HX - Past Medical History Medical history: cancer, hyperlipidemia, hypertension, kidney stones, other Additional medical history: bilateral knee pain,bladder cancer,prostate, erectile dysfunction,kidney cancer. LEFT RENAL CARCINOMA Psychiatric history: no psych history - Past Surgical History Surgical History: cancer surgery Additional surgical history: Transurethral Resection Bladder Tumor, left knee replacement x 2, TURP right TKR - colonoscopy - kidney biopsy,prostate,right knee replacement,kidney surgery for cancer,colonoscopy - Social History Smoking Status: Current every day smoker Packs per day: 1ppd Smokeless Tobacco Status: No Alcohol use: none Drug use: none - Family History Father Living Status: Hx Family Cancer: Yes (Prostate) Medications and Allergies Gemfibrozil [Lopid] 600 mg PO BID 07/24/15 [History] Lisinopril/Hydrochlorothiazide [Zestoretic 20-25 mg Tablet] 1 each PO DAILY 01/27 [History] Multivitamin [One Daily Multivitamin] 1 tab PO DAILY 11/21/17 [History] 3 Allergy/AdvReac Type Severity Reaction Status Date / Time No Known Allergies Allergy Verified 11/21/17 10:54 All Systems Review: The remainder of the systems were reviewed and are negative Physical Examination Vital Signs, Last 4 Hours Resp Pulse Ox 11/22/17 11:42 16 97 General: Conversant, No Apparent Distress HEENT: Atraumatic, Normocephaly, Mucus Membranes Moist Neck: No JVD, Normal carotid pulses Cardiac: Reg Rate and Rhythm, Normal S1 and S2, No Murmur Lungs: Normal Breath Sounds, Other (Faint wheezes noted on exam, ) Neuro: Alert and responsive, No focal deficits noted Abdomen: Soft, Other (BS + x4, dressing D/I.) Skin: No rashes noted on visualized skin Musculoskeletal: No Chest Wall Tenderness Extremities: No Clubbing, No Cyanosis, No Edema, Normal Pulses Results 11/21/17 19:30 11/22/17 04:24 Lab Results 11/21/17 11/22/17 11/22/17 19:30 04:24 08:28 WBC 12.3 H Hgb 13.7 Hct 38.4 Plt Count 191 Sodium 135 L Potassium 4.4 Chloride 106 Carbon Dioxide 21 L BUN 27 H Creatinine 1.46 H Glucose 124 H Calcium 8.7 Troponin I 0.06 H* B-Natriuretic Peptide 11/22/17 12:11 WBC Hgb Hct Plt Count Sodium Potassium Chloride Carbon Dioxide BUN Creatinine Glucose Calcium Troponin I B-Natriuretic Peptide 156 H - Imaging and Cardiology Echo: report reviewed - EKG Interpretation EKG results cardiology: personally reviewed Consult Discharge Plan - Plan Referrals: Dany Foster MD [Partnered Physician] - 12/06/17 8:00 am Nisha Brewer MD [Primary Care Provider] - <Jackie Bonilla - Last Filed: 11/22/17 18:20> Date of Encounter: 11/22/17 - Attending Attestation Patient was seen and evaluated independently by me. Findings, assessment and plan were discussed at length with patient, questions answered. Agree with nurse practitioner's documentation. Addition as follows, 62 yoCM ho HTN, HLD s/p colon resection for colon Ca. Consulted for mild trop elevation <0.1 flat w/o dynamic ECG change. No complaints. No cp, dyspnea, palpitations. Vital stable, RRR, CTA, no LE edema A: minimal trop elevation, demand ischemia P: TTE for EF and WMA, if wnl, outpatient PCP follow up for stress test Jackie Bonilla MD, PhD Assessment and Plan Discussion w patient/family: The assessment and plan as outlined above was discussed with the patient and/or family members who expressed understanding and agreement. All questions were answered. Thank you for involving us in the care of your patient. Please call with any questions. History of Present Illness History of present illness: Mr. Beck is a 62 year old male All Systems Review: The remainder of the systems were reviewed and are negative Physical Examination Vital Signs, Last 4 Hours Temp Pulse Resp BP Pulse Ox 11/22/17 15:20 16 95 11/22/17 14:26 98.0 F 57 18 110/51 94 Results 11/21/17 19:30 11/22/17 04:24 Lab Results 11/21/17 11/22/17 11/22/17 19:30 04:24 08:28 WBC 12.3 H Hgb 13.7 Hct 38.4 Plt Count 191 Sodium 135 L Potassium 4.4 Chloride 106 Carbon Dioxide 21 L BUN 27 H Creatinine 1.46 H Glucose 124 H Calcium 8.7 Troponin I 0.06 H* B-Natriuretic Peptide 11/22/17 11/22/17 12:11 15:56 WBC Hgb Hct Plt Count Sodium Potassium Chloride Carbon Dioxide BUN Creatinine Glucose Calcium Troponin I 0.05 H* B-Natriuretic Peptide 156 H
--- NOTE | 2017-11-22 17:47 | Electrocardiograph Report ---
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
[2017-11-22] MEDS: *HR* Heparin 5,000 UNIT/ML VIAL SQ SCH ×2 (18:00→22:42)
[2017-11-23] MEDS: Ketorolac 15 MG/ML VIAL IVP SCH ×2 (00:21→05:20)
[2017-11-23 00:57] LABS: Basophils % 0.4 %; Eosinophils # 0.1 K/mcL (0.0-0.6); Eosinophils % 1.2 %; Hematocrit 31.2 % (37.5-50.1); Immature Granulocytes % 0.4 % (0-4); Lymphocytes # 1.4 K/mcL (0.6-4.6); Lymphocytes % 17.9 %; Mean Corpuscular HGB Conc 35.3 g/dL (31.6-35.5); Mean Corpuscular Hemoglobin 32.9 pg (28.0-33.3); Mean Corpuscular Volume 93.4 fL (83.0-100.0); Mean Platelet Volume 9.3 fL (9.4-12.4); Monocytes # 0.5 K/mcL (0.0-1.3); Monocytes % 6.5 %; Neutrophils # 5.6 K/mcL (1.6-8.9); Platelet Count 171 K/mcL (140-400); Red Blood Count 3.34 M/mcL (4.19-5.50); Red Cell Distribution Width 13.4 % (11.5-14.5); Segmented Neutrophils % 73.6 %
[2017-11-23 01:11] LABS: BUN/Creatinine Ratio 21 (6-26); Blood Urea Nitrogen 27 mg/dL (8-23); Calcium 8.3 mg/dL (8.6-10.3); Carbon Dioxide 21 mEq/L (23-29); Chloride 108 mEq/L (98-107); Glucose 99 mg/dL (70-105); Osmolality,Calculated 287 (280-300); Potassium 3.3 mEq/L (3.5-5.1); Sodium 136 mEq/L (136-145); eGFR For Non-African Americans 57 (> 60)
[2017-11-23] MEDS: Ipratropium/Albuterol Neb 3 ML IH SCH ×3 (04:08→11:09)
[2017-11-23] MEDS: *HR* Heparin 5,000 UNIT/ML VIAL SQ SCH (05:20)
[2017-11-23] MEDS: Pantoprazole 40 MG VIAL IVP SCH (07:51)
[2017-11-23 10:33] VITALS: BP 154/88
--- NOTE | 2017-11-23 10:54 | Discharge Summary ---
- NOTES TO OUTPATIENT PROVIDER Notes to Outpatient Provider: To PCP: patient will need outpatient stress test per cardiology recommendations. HgA1C was not resulted at time of d/c. Ok to place patient on ASA if indicated. Orders not resulted at time of discharge: Pending orders 11/21/17 18:06 Surgical Pathology [PTH] Routine 11/22/17 09:17 EKG [ECG 12 lead ECG] [ECG] Stat 11/23/17 00:28 Hgb A1C AM 0400 Date of Encounter: 11/23/17 Time of Encounter: 10:55 - Discharge Diagnosis (1) Colon cancer Priority: Primary Status: Acute Qualifiers: Colon location: unspecified part of colon Qualified Code(s): C18.9 - Malignant neoplasm of colon, unspecified (2) Elevated troponin I level Priority: Secondary Status: Acute (3) Renal cyst Priority: Secondary Status: Chronic (4) Tobacco abuse Priority: Secondary Status: Acute (5) HTN (hypertension) Priority: Secondary Status: Chronic Qualifiers: Hypertension type: essential hypertension Qualified Code(s): I10 - Essential (primary) hypertension (6) Renal cell carcinoma Priority: Secondary Status: Chronic Qualifiers: Laterality: left Qualified Code(s): C64.2 - Malignant neoplasm of left kidney, except renal pelvis (7) Morbid obesity with BMI of 40.0-44.9, adult Priority: Secondary Status: Acute General Surgery Exam Initial Vital Signs Temp Pulse Resp BP Pulse Ox 98.6 F 71 18 99/78 100 11/21/17 10:46 11/21/17 10:46 11/21/17 10:46 11/21/17 10:46 11/21/17 10:46 Vital Signs Temp Pulse Resp BP Pulse Ox 11/23/17 10:29 97.8 F 76 18 154/88 97 11/23/17 07:33 16 98 11/23/17 07:01 98.0 F 70 18 167/86 96 11/23/17 04:58 99.2 F 78 13 103/67 95 11/23/17 04:08 16 95 11/22/17 23:11 18 93 11/22/17 22:42 98.1 F 65 16 124/71 94 11/22/17 19:48 16 95 11/22/17 19:41 98.2 F 64 14 146/81 95 11/22/17 15:20 16 95 11/22/17 14:26 98.0 F 57 18 110/51 94 11/22/17 11:42 16 97 Intake and Output 11/22/17 11/23/17 11/23/17 23:59 07:59 15:59 Intake Total 1560 / 1560 960 / 960 360 / 360 Output Total 900 / 900 1050 / 1050 Balance 660 / 660 -90 / -90 360 / 360 Intake: IV Fluids 1010 / 1010 0.9 % Sodium Chloride 1,000 ML 1000 / 1000 @ 100 mls/hr IVC .Q10H NELLA Rx#: [id number] Mefoxin 1,000 MG In Water for inj. (sterile) 10 ML @ 300 mls/ hr IVP Q8HR NELLA Rx#:[id number] Oral 550 / 550 960 / 960 360 / 360 Output: Urine 900 / 900 1050 / 1050 Other: Meal Breakfast Weight 136 kg Patient Weight 11/23/17 23:59 Weight 136 kg VITAL SIGNS: Reviewed. See [facility] GENERAL: In no apparent distress. HEENT: Normocephalic, atraumatic, pupils are equal and reactive, extraocular motions intact, oropharynx is pink and moist, there is no JVD noted. CHEST/RESPIRATORY: The thorax is free from signs of trauma. Lung sounds: clear to auscultation, normal respiratory effort CARDIAC: Regular rate and rhythm. Normal S1 and S2, without murmurs, gallops, or rubs. VASCULAR: No Edema. 2+ peripheral pulses. ABDOMEN: soft, expected postoperative tenderness, active bowel sounds INCISION: Surgical incision is clean, dry, and intact. There are no signs of cellulitis or infection noted. MUSCULOSKELETAL: Good range of motion of all major joints. Extremities without clubbing, cyanosis or edema. NEUROLOGIC EXAM: Alert and oriented x 3. Speech normal. Follows commands. PSYCHIATRIC: Mood normal. SKIN: No rash or lesions. - Hospital Course Hospital course: Mr. Beck is a 62 year old male presented and underwent on 11/21/2017 for an elective robotic assisted right hemicolectomy due to a 12 cm mass, by Dr. Foster. His hospital course was complicated by 0.[address] depression during anesthesia. Follow-up EKGs, troponin, and consult cardiology was obtained. The patient also completed and echocardiogram which noted LVEF of 60% and indeterminate diastolic dysfunction. He was recommended per Dr. Bonilla to see his primary care provider for an outpatient stress test. No further cardiovascular workup indicated during hospital stay. He is ambulating and voiding without difficulty, tolerating a diet without nausea or vomiting, vital signs are stable, and he is afebrile. We will begin discharge planning to home with a follow-up in the office in approximately 2 weeks. His pathology remains pending at the time of discharge. Time spent discussing smoking cessation with patient: 3 to 10 minutes - Time Spent with Patient Total time spent providing and/or coordinating discharge services: - Discharge Medications Prescriptions: OxyCODONE/APAP 5/325 [Percocet 5/325 MG] 1 each PO Q6HR PRN 7 Days #28 tablet PRN Reason: Pain Docusate [Colace] 100 mg PO BID #30 capsule Home Medications: Gemfibrozil [Lopid] 600 mg PO BID 07/24/15 [History] Lisinopril/Hydrochlorothiazide [Zestoretic 20-25 mg Tablet] 1 each PO DAILY 01/27 [History] Multivitamin [One Daily Multivitamin] 1 tab PO DAILY 11/21/17 [History] Docusate [Colace] 100 mg PO BID #30 capsule 11/23/17 [Rx] OxyCODONE/APAP 5/325 [Percocet 5/325 MG] 1 each PO Q6HR PRN 7 Days #28 tablet [Rx] Allergies/Adverse Reactions: 3 Allergy/AdvReac Type Severity Reaction Status Date / Time No Known Allergies Allergy Verified 11/21/17 10:54 Date of admission: 11/21/17 19:11 Primary care physician: James Shipley Consults: 11/22/17 10:57 Consult to Cardiology [CONS] Routine Comment: Dr. Lux Consulting Provider: Cardiology Tami Reason for Consult: Elevated TNi Time Notified: 10:40 Call Completed: Yes 11/22/17 11:08 Consult to Respiratory Therapy [CONS] Routine Reason for Consult: aggressive pulm toileting, postop, significant smoking history. Call Completed: No 11/22/17 11:22 consult to search strategist [Consult to Nutrition] [CONS] Routine Comment: Consulting Provider: NUTRITION Reason for Dietary Consult: Diet Education Other:: obesity, risk factors for ASHD, protein needs s/p colon resection Discharging clinician: Tea Golden Anticipated date of discharge: 11/23/17 Labs on day of discharge: Labs from last 24 hours 11/23/17 11/23/17 11/23/17 00:28 00:28 00:28 WBC 7.6 RBC 3.34 L Hgb 11.0 L D Hct 31.2 L MCV 93.4 MCH 32.9 MCHC 35.3 RDW 13.4 Plt Count 171 MPV 9.3 L Immature Gran % 0.4 Seg Neutrophils % 73.6 Lymphocytes % 17.9 Monocytes % 6.5 Eosinophils % 1.2 Basophils % 0.4 Neutrophils # 5.6 Lymphocytes # 1.4 Monocytes # 0.5 Eosinophils # 0.1 Basophils # 0.0 Sodium 136 Potassium 3.3 L Chloride 108 H Carbon Dioxide 21 L BUN 27 H Creatinine 1.27 Est GFR ( Amer) > 60 Est GFR (Non-Af Amer) 57 L BUN/Creatinine Ratio 21 Glucose 99 POC Glucose Calculated Osmolality 287 Calcium 8.3 L Troponin I 0.05 H* B-Natriuretic Peptide Specimen Rejected 11/22/17 11/22/17 11/22/17 15:56 12:11 11:45 WBC RBC Hgb Hct MCV MCH MCHC RDW Plt Count MPV Immature Gran % Seg Neutrophils % Lymphocytes % Monocytes % Eosinophils % Basophils % Neutrophils # Lymphocytes # Monocytes # Eosinophils # Basophils # Sodium Potassium Chloride Carbon Dioxide BUN Creatinine Est GFR ( Amer) Est GFR (Non-Af Amer) BUN/Creatinine Ratio Glucose POC Glucose Calculated Osmolality Calcium Troponin I 0.05 H* B-Natriuretic Peptide 156 H Specimen Rejected Volume 11/22/17 11/22/17 11:07 10:50 WBC RBC Hgb Hct MCV MCH MCHC RDW Plt Count MPV Immature Gran % Seg Neutrophils % Lymphocytes % Monocytes % Eosinophils % Basophils % Neutrophils # Lymphocytes # Monocytes # Eosinophils # Basophils # Sodium Potassium Chloride Carbon Dioxide BUN Creatinine Est GFR ( Amer) Est GFR (Non-Af Amer) BUN/Creatinine Ratio Glucose POC Glucose 110 H Calculated Osmolality Calcium Troponin I B-Natriuretic Peptide Specimen Rejected Volume - Impressions ITS Impressions Echocardiogram 11/22/17 14:35 Impressions: LVEF 60%. Indeterminate diastolic function. Normal right ventricular structure and function. No significant valvular dysfunction. No pulmonary hypertension based on TR signal obtained. Left Ventricular Wall Motion: Rest Echo Findings All wall segments showed normal motion. Findings: Study Quality * Technically adequate exam. ECG Findings * Normal sinus rhythm. Left Ventricle * LVEF 60%. * Normal LV chamber size, wall thickness and function. * Indeterminate diastolic function. Right Ventricle * Normal right ventricular structure and function. Left Atrium * Normal left atrial size. Right Atrium * Normal right atrial size. Aortic Valve * No aortic regurgitation. * Aortic valve not well visualized. * No aortic stenosis. Mitral Valve * No mitral regurgitation. * Normal mitral valve structure. * No mitral stenosis. Tricuspid Valve * Tricuspid valve not well visualized. * Trace tricuspid regurgitation. Pulmonic Valve * Pulmonic valve not well visualized. * No pulmonic regurgitation. * Suboptimal Doppler. Pulmonary Artery * Pulmonary artery not well visualized. Aorta * Normally sized aortic root. Pericardium * There is no pericardial effusion present. Interatrial Septum * Interatrial septum not well evaluated. IVC * The IVC is not well evaluated. - Patient Status Disposition: Home, Self-Care Condition: Good Functional capacity at discharge: independent ambulation Overall status at discharge: patient is back to baseline - Discharge Instructions Instructions: Colectomy (DC) Follow Up With: Dany Foster MD [Partnered Physician] - 12/06/17 8:00 am Nisha Brewer MD [Primary Care Provider] - Additional Instructions: General Surgical Discharge Instructions 1. No pushing, pulling, or lifting greater than 15 lbs for 2-4 weeks (depending upon procedure). 2. You may shower beginning today, but no tub baths, soaking, or swimming for 2 weeks. 3. You may resume driving when you are off narcotics and are safe to react in a car. 4. Take ibuprofen every 8 hours for discomfort. If this does not relieve discomfort, you may take the as needed Percocet. Take narcotics as directed. Do not take more narcotics then directed and do not share your narcotics with any other person. Do not drink alcohol while on narcotics. 5. Take stool softeners (Colace) or a water based laxative (Miralax) while taking narcotics. You may hold for loose stools. 6. Report any fevers greater than 100.5F, increase abdominal discomfort, drainage that looks like pus, increased redness or pain at the surgical site, or any vomiting. 7. Report any pain in the calves, shortness of breath, or rapid heartbeat. 8. Follow-up in the office as directed. 9. If you were prescribed antibiotics, do not stop them without talking to your provider. You need to follow-up with your primary care provider for a stress test as an outpatient. Follow up with your oncologist as directed. - Diet and Activity Activity: increase activity as tolerated
[2017-11-23] MEDS ORDERED: *HR* OxyCODONE/APAP 5/325 TABLET PO PRN (10:57)
[2017-11-23 12:09] LABS: Estimated Average Glucose 114 mg/dl; Hemoglobin A1C 5.6 %
--- NOTE | 2017-11-23 12:26 | Event Note ---
Date of Encounter: 11/23/17 Time of Encounter: 12:24 - Cardiology Event Note TTE resulted with LVEF 60%, no segmental wall motion abnormalities noted. Per 's previous note, if no significant findings on TTE, cardiology will sign off. Recommend asa if ok with surgery, statin, BB. Will arrange outpateint cardiac follow up, possible stress test as outpatient.
[2017-11-23] MEDS ORDERED: Metoprolol XL (24 HR) Succ 25 MG TAB.ER.24H PO SCH (12:30)
--- NOTE | 2017-11-23 15:50 | Electrocardiograph Report ---
[place] [id number] Test Date: 2017-11-22 Pat Name: Israel Beck Department: 115 Room: 3A Gender: M Director Of Community Education: MIKE : 1955 Requested By: Tea Golden Order Number: [id number] Reading MD: Mary Barber Measurements Intervals [place] Rate: 50 P: 59 NM: 205 QRS: -28 QRSD: 111 T: -18 QT: 430 QTc: 403 Interpretive Statements SINUS BRADYCARDIA BORDERLINE LEFT AXIS DEVIATION INTRAVENTRICULAR CONDUCTION DELAY Electronically Signed On 11-23-2017 15:48:27 EDT by Mary Barber
== END 2017-11-23 13:58 | disposition home or self-care (01) | DRG 231 ==
LOC: SAMDAY 10:25 → 3ANU 19:11
PROVIDERS: ADMIT Surgery; ATTEND Surgery